=== PATIENT | male | born 1965 | race Caucasian/White ===

== ENCOUNTER 2017-01-14 23:22 | Emergency (ER) | payer MEDICAID ==
[~2017-01-14] VITALS: Ht 170.2 cm; Wt 75.0 kg
[~2017-01-14 23:22] MED LIST: ALBU2.5V11; ALBU6.7H INH; BUTA1CAP60 PO; CYCL-259 PO; DIAZ5TAB4 PO; GABA300C PO; METH500T97; METH750T2 PO; MORP60CA17 PO; NAPR550T3 PO; OMEP-110 PO; OXYC-229 PO; OXYC1TAB9 PO
[2017-01-15] MEDS ORDERED: ALBUTEROL/IPRATROPIUM 2.5MG/0.5MG, 3 ML ONE (00:48)
[2017-01-15] MEDS ORDERED: ALBUTEROL/IPRATROPIUM 2.5MG/0.5MG, 3 ML NPPB ONE (01:00)
[2017-01-15] MEDS ORDERED: ONDANSETRON ODT 4 MG PO ONE (01:00)
[2017-01-15] MEDS ORDERED: ONDANSETRON ODT 4 MG ONE (01:55)
[2017-01-15 02:06] VITALS: BP 133/68
== END 2017-01-15 02:08 ==
LOC: ED 01-15 02:02
DX: J20.8 Acute bronchitis due to other specified organisms (principal); J44.9 Chronic obstructive pulmonary disease, unspecified; E11.9 Type 2 diabetes mellitus without complications; I10 Essential (primary) hypertension
CPT/HCPCS: 71010; 93005; 94640; 99284; Q0162; J7620

== ENCOUNTER 2017-02-10 09:23 | Emergency (ER) | payer MEDICAID ==
[~2017-02-10] VITALS: Ht 170.2 cm; Wt 63.0 kg
[2017-02-10] MEDS ORDERED: SODIUM CHLORIDE FLUSH 10ML SYR IVF ONE (10:00)
[2017-02-10 10:27] LABS: HEMOGLOBIN 16.1 g/dL (13.7-18.0)
[2017-02-10 10:38] LABS: BLOOD UREA NITROGEN 23 mg/dL (7-18)
[2017-02-10 12:17] VITALS: BP 112/60
== END 2017-02-10 12:19 | disposition home or self-care (01) ==
LOC: ED 11:20
DX: G40.309 Generalized idiopathic epilepsy and epileptic syndromes, not intractable, without status epilepticus (principal); J44.9 Chronic obstructive pulmonary disease, unspecified; E11.9 Type 2 diabetes mellitus without complications; I10 Essential (primary) hypertension; Z88.5 Allergy status to narcotic agent
CPT/HCPCS: 36415; 80048; 80164; 82040; 85025; 99284

== ENCOUNTER 2017-03-14 12:28 | Emergency (ER) | payer MEDICAID ==
[~2017-03-14] VITALS: Ht 167.6 cm; Wt 69.0 kg
[2017-03-14 12:31] VITALS: BP 153/84
[2017-03-14] MEDS ORDERED: FLUORESCEIN OPHTHALMIC 1 MG STRIP EACHEYE ONE (13:00)
[2017-03-14] MEDS ORDERED: PROPARACAINE OPHTH 0.5%, 15ML EACHEYE ONE (13:00)
[2017-03-14] MEDS ORDERED: FLUORESCEIN OPHTHALMIC 1 MG STRIP ONE (13:00)
[2017-03-14] MEDS ORDERED: PROPARACAINE OPHTH 0.5%, 15ML ONE (13:00)
== END 2017-03-14 13:41 | disposition home or self-care (01) ==
LOC: ED 13:00
DX: H10.33 Unspecified acute conjunctivitis, bilateral (principal); E11.9 Type 2 diabetes mellitus without complications; I10 Essential (primary) hypertension; Z88.8 Allergy status to other drugs, medicaments and biological substances
CPT/HCPCS: 99283

== ENCOUNTER 2017-04-14 17:21 | Emergency (ER) | payer MEDICAID ==
[~2017-04-14] VITALS: Ht 170.2 cm; Wt 70.5 kg
[2017-04-14 17:23] VITALS: BP 152/80
[2017-04-14] MEDS ORDERED: LORazepam 1MG TABLET PO ONE (18:00)
[2017-04-14 18:09] LABS: BLOOD UREA NITROGEN 10 mg/dL (7-18)
[2017-04-14 18:13] LABS: ASPARTATE AMINO TRANSFERASE 22 U/L (15-37)
[2017-04-14 18:19] LABS: ACETAMINOPHEN < 2 mcg/mL (10-30)
[2017-04-14 19:41] LABS: DAU SCREEN DISCLAIMER
== END 2017-04-14 20:37 | disposition home or self-care (01) ==
LOC: ED 18:11
DX: S00.93XA Contusion of unspecified part of head, initial encounter (principal); E11.9 Type 2 diabetes mellitus without complications; I10 Essential (primary) hypertension; J44.9 Chronic obstructive pulmonary disease, unspecified; F41.9 Anxiety disorder, unspecified; W19.XXXA Unspecified fall, initial encounter; Y93.89 Activity, other specified; Y99.8 Other external cause status; Y92.89 Other specified places as the place of occurrence of the external cause
CPT/HCPCS: 36415; 70450; 80053; 80307; 80329; 81003; 85025; G0480

== ENCOUNTER 2017-04-29 14:34 | Emergency (ER) | payer MEDICAID ==
[~2017-04-29] VITALS: Ht 170.2 cm; Wt 69.6 kg
[~2017-04-29 14:34] MED LIST changes: -NAPR550T3 PO; +NAPR550T30 PO
[2017-04-29] MEDS ORDERED: DIVA500T2 PO (15:05)
[2017-04-29] MEDS ORDERED: ARIP5TAB6 PO (15:05)
[2017-04-29] MEDS ORDERED: GABA600T2 PO (15:05)
[2017-04-29] MEDS ORDERED: SODIUM CHLORIDE 0.9% 1,000 ML IV ONE (15:26)
[2017-04-29] MEDS ORDERED: SODIUM CHLORIDE 0.9% 1,000ML IVBOLUS ONE (15:30)
[2017-04-29] MEDS ORDERED: METHOCARBAMOL 1,000 MG in DEXTROSE 5% 100 ML IV ONE (15:30)
[2017-04-29] MEDS ORDERED: SODIUM CHLORIDE FLUSH 10ML SYR IVF ONE (15:30)
[2017-04-29] MEDS ORDERED: ASPIRIN 81 MG TABLET CHEW PO ONE (15:30)
[2017-04-29] MEDS ORDERED: ASPIRIN 81 MG TABLET CHEW ONE (15:48)
[2017-04-29 15:55] LABS: ASPARTATE AMINO TRANSFERASE 22 U/L (15-37); BLOOD UREA NITROGEN 11 mg/dL (7-18)
[2017-04-29 16:00] LABS: IS PT STATUS REG ER OR PRE ER? YES
[2017-04-29 20:17] VITALS: BP 129/82
[2017-04-29] MEDS ORDERED: OMNIPAQUE 350 MG/ML, 100ML BOTTLE ONE (20:21)
== END 2017-04-29 20:20 | disposition home or self-care (01) ==
LOC: ED 17:32
DX: R07.89 Other chest pain (principal); R44.3 Hallucinations, unspecified; F23 Brief psychotic disorder; M62.838 Other muscle spasm; M79.1 Myalgia; D72.829 Elevated white blood cell count, unspecified; J44.9 Chronic obstructive pulmonary disease, unspecified; E11.9 Type 2 diabetes mellitus without complications; I51.7 Cardiomegaly
CPT/HCPCS: 36415; 71010; 71275; 80053; 84484; 85025; 93005; 96365; 99285; J2800; J7030; Q9967

== ENCOUNTER 2017-05-29 11:24 | Emergency (ER) | payer MEDICAID ==
[~2017-05-29] VITALS: Ht 170.2 cm; Wt 69.1 kg
[~2017-05-29 11:24] MED LIST changes: +ARIP5TAB6 PO; +DIVA500T2 PO; +GABA600T2 PO
[2017-05-29 11:30] VITALS: BP 145/87
== END 2017-05-29 12:06 | disposition home or self-care (01) ==
LOC: ED 11:44
DX: H60.11 Cellulitis of right external ear (principal); L03.211 Cellulitis of face; L03.221 Cellulitis of neck; J44.9 Chronic obstructive pulmonary disease, unspecified; G43.909 Migraine, unspecified, not intractable, without status migrainosus; F12.10 Cannabis abuse, uncomplicated; Z88.6 Allergy status to analgesic agent
CPT/HCPCS: 99283

== ENCOUNTER 2017-08-02 18:29 | Emergency (ER) | payer MEDICAID ==
[~2017-08-02] VITALS: Ht 170.2 cm; Wt 72.7 kg
[~2017-08-02 18:29] MED LIST changes: +ARIP5TAB13 PO; -ARIP5TAB6 PO; +NAPR-850 PO; -NAPR550T30 PO; -OXYC-229 PO; +OXYC-307 PO
[2017-08-02 18:31] VITALS: BP 176/97
== END 2017-08-02 19:06 | disposition home or self-care (01) ==
LOC: ED 18:40
DX: H93.11 Tinnitus, right ear (principal); H93.12 Tinnitus, left ear; E11.9 Type 2 diabetes mellitus without complications; J44.9 Chronic obstructive pulmonary disease, unspecified; I10 Essential (primary) hypertension
CPT/HCPCS: 99281

== ENCOUNTER 2017-08-10 05:15 | Observation (INO) | payer MEDICAID ==
[~2017-08-10] VITALS: Ht 170.2 cm; Wt 69.3 kg
[2017-08-10] MEDS ORDERED: HALOPERIDOL 5 MG/ML ONE (05:55)
[2017-08-10] MEDS ORDERED: DIPHENHYDRAMINE 50 MG/ML, 1ML ONE (05:55)
[2017-08-10] MEDS ORDERED: LORazepam 2 MG/ML, 1ML ONE (05:56)
[2017-08-10] MEDS ORDERED: LORazepam 2 MG/ML, 1ML IM ONE (06:00)
[2017-08-10] MEDS ORDERED: DIPHENHYDRAMINE 50 MG/ML, 1ML IM ONE (06:00)
[2017-08-10] MEDS ORDERED: HALOPERIDOL 5 MG/ML IM ONE (06:00)
[2017-08-10 06:43] LABS: HEMATOCRIT 46.3 % (39.2-51.8); HEMOGLOBIN 15.6 g/dL (13.7-18.0); WHITE BLOOD COUNT 13.2 x10^3/uL (3.4-10)
[2017-08-10 06:54] LABS: BLOOD UREA NITROGEN 13 mg/dL (7-18)
[2017-08-10 06:55] LABS: ACETAMINOPHEN < 2 mcg/mL (10-30)
[2017-08-10] MEDS ORDERED: DIPH,PERTUSS(ACELL),TET VAC/PF 0.5 ML IM-VACC ONE (07:00)
[2017-08-10 07:24] LABS: IS PT STATUS REG ER OR PRE ER? YES
[2017-08-10 22:37] LABS: DAU SCREEN DISCLAIMER
[2017-08-11] MEDS ORDERED: ZIPRASIDONE 20 MG INJ IM PRN (00:30)
[2017-08-11] MEDS ORDERED: DIPHENHYDRAMINE 50 MG CAPSULE PO PRN (00:30)
[2017-08-11] MEDS ORDERED: ZIPRASIDONE 20MG CAPSULE PO PRN (00:30)
[2017-08-11] MEDS ORDERED: DOCUSATE 100 MG CAPSULE PO PRN (00:30)
[2017-08-11] MEDS ORDERED: DIPH,PERTUSS(ACELL),TET VAC/PF 0.5 ML IM-VACC ONE (00:48)
[2017-08-11 01:00] VITALS: BP 117/82
[2017-08-11] MEDS: ARIPIPRAZOLE 5 MG TABLET PO SCH ×2 (02:46→21:47)
[2017-08-11 03:13] VITALS: BP 107/70
[2017-08-11 08:00] VITALS: BP 105/70
[2017-08-11] MEDS: GABAPENTIN 300 MG CAPSULE PO SCH ×2 (08:53→21:47)
[2017-08-11] MEDS: DIVALPROEX 500 MG TABLET.DR PO SCH ×2 (08:53→21:47)
[2017-08-11 19:37] VITALS: BP 116/73
[2017-08-12 06:42] LABS: HEMATOCRIT 45.2 % (39.2-51.8); WHITE BLOOD COUNT 13.1 x10^3/uL (3.4-10)
[2017-08-12 06:51] LABS: ASPARTATE AMINO TRANSFERASE 24 U/L (15-37); BLOOD UREA NITROGEN 21 mg/dL (7-18)
[2017-08-12] MEDS: DIVALPROEX 500 MG TABLET.DR PO SCH ×2 (08:48→21:04)
[2017-08-12] MEDS: GABAPENTIN 300 MG CAPSULE PO SCH ×2 (08:48→21:04)
[2017-08-12 08:54] VITALS: BP 114/68
[2017-08-12 19:12] VITALS: BP 123/80
[2017-08-12] MEDS ORDERED: NICOTINE 21 MG/24 HR PATCH.TD24 TD ONE (20:30)
[2017-08-12] MEDS ORDERED: ARIPIPRAZOLE 10 MG TABLET PO SCH (21:00)
[2017-08-12] MEDS: ARIPIPRAZOLE 5 MG TABLET PO SCH (21:00)
[2017-08-12] MEDS: PLEASE ENTER ALLERGIES MC SCH ×2 (21:00)
[2017-08-13] MEDS: PLEASE ENTER ALLERGIES MC SCH ×2 (05:00)
[2017-08-13 07:04] LABS: HEMOGLOBIN 14.7 g/dL (13.7-18.0); WHITE BLOOD COUNT 11.2 x10^3/uL (3.4-10)
[2017-08-13 07:15] LABS: BLOOD UREA NITROGEN 13 mg/dL (7-18)
[2017-08-13 08:00] VITALS: BP 99/67
[2017-08-13] MEDS: DIVALPROEX 500 MG TABLET.DR PO SCH ×2 (08:42→20:28)
[2017-08-13] MEDS: GABAPENTIN 300 MG CAPSULE PO SCH ×2 (08:42→20:28)
[2017-08-13 19:20] VITALS: BP 118/72
[2017-08-13] MEDS: ARIPIPRAZOLE 10 MG TABLET PO SCH (21:10)
[2017-08-14 07:35] VITALS: BP 113/73
[2017-08-14] MEDS: GABAPENTIN 300 MG CAPSULE PO SCH ×2 (08:51→20:40)
[2017-08-14] MEDS: DIVALPROEX 500 MG TABLET.DR PO SCH ×2 (08:51→20:40)
[2017-08-14] MEDS ORDERED: NICOTINE 21 MG/24 HR PATCH.TD24 TD SCH (19:00)
[2017-08-14 19:25] VITALS: BP 118/73
[2017-08-14] MEDS: ARIPIPRAZOLE 10 MG TABLET PO SCH (20:40)
[2017-08-14] MEDS: NICOTINE 21 MG/24 HR PATCH.TD24 TD SCH (20:41)
[2017-08-14] MEDS: ACETAMINOPHEN 325 MG TABLET PO PRN (20:45)
[2017-08-15 06:00] LABS: HEMATOCRIT 46.1 % (39.2-51.8); HEMOGLOBIN 15.5 g/dL (13.7-18.0); WHITE BLOOD COUNT 11.7 x10^3/uL (3.4-10)
[2017-08-15 06:22] LABS: ASPARTATE AMINO TRANSFERASE 18 U/L (15-37); BLOOD UREA NITROGEN 16 mg/dL (7-18)
[2017-08-15 07:39] VITALS: BP 119/78
[2017-08-15] MEDS: NICOTINE 21 MG/24 HR PATCH.TD24 TD SCH (08:43)
[2017-08-15] MEDS: GABAPENTIN 300 MG CAPSULE PO SCH ×2 (08:43→20:37)
[2017-08-15] MEDS: DIVALPROEX 500 MG TABLET.DR PO SCH ×2 (08:43→20:37)
[2017-08-15] MEDS: ACETAMINOPHEN 325 MG TABLET PO PRN (08:43)
[2017-08-15 19:17] VITALS: BP 121/73
[2017-08-15] MEDS ORDERED: ZIPRASIDONE 20MG CAPSULE PO PRN (20:30)
[2017-08-15] MEDS ORDERED: DIPHENHYDRAMINE 50 MG CAPSULE PO PRN (20:30)
[2017-08-15] MEDS ORDERED: DOCUSATE 100 MG CAPSULE PO PRN (20:30)
[2017-08-15] MEDS ORDERED: ZIPRASIDONE 20 MG INJ IM PRN (20:30)
[2017-08-15] MEDS: ARIPIPRAZOLE 10 MG TABLET PO SCH (20:36)
[2017-08-16] MEDS: GABAPENTIN 300 MG CAPSULE PO SCH ×2 (08:27→20:22)
[2017-08-16] MEDS: ACETAMINOPHEN 325 MG TABLET PO PRN ×2 (08:27→15:10)
[2017-08-16] MEDS: NICOTINE 21 MG/24 HR PATCH.TD24 TD SCH (08:27)
[2017-08-16] MEDS: DIVALPROEX 500 MG TABLET.DR PO SCH ×2 (08:27→20:21)
[2017-08-16 08:54] VITALS: BP 102/66
[2017-08-16 19:28] VITALS: BP 115/68
[2017-08-16] MEDS: ARIPIPRAZOLE 10 MG TABLET PO SCH (20:21)
[2017-08-17 06:14] LABS: HEMATOCRIT 48.4 % (39.2-51.8); HEMOGLOBIN 16.3 g/dL (13.7-18.0); WHITE BLOOD COUNT 11.7 x10^3/uL (3.4-10)
[2017-08-17 06:24] LABS: BLOOD UREA NITROGEN 16 mg/dL (7-18)
[2017-08-17] MEDS: GABAPENTIN 300 MG CAPSULE PO SCH (08:41)
[2017-08-17] MEDS: DIVALPROEX 500 MG TABLET.DR PO SCH (08:41)
[2017-08-17 08:45] VITALS: BP 117/74
[2017-08-17] MEDS: ACETAMINOPHEN 325 MG TABLET PO PRN (08:46)
[2017-08-17] MEDS: NICOTINE 21 MG/24 HR PATCH.TD24 TD SCH (08:47)
[2017-08-17] MEDS ORDERED: ARIP10TA33 PO (15:10)
== END 2017-08-17 17:00 | disposition home or self-care (01) ==
LOC: ED 05:59 → SUATTDRO 08-11 00:09 → EDIP 08-11 00:10 → 3NW 08-11 00:55 → 3E 08-11 02:28
PROVIDERS: ADMIT Family Medicine; ATTEND Family Medicine
DX: R45.851 Suicidal ideations (principal); F43.10 Post-traumatic stress disorder, unspecified; F15.20 Other stimulant dependence, uncomplicated; F22 Delusional disorders; E11.9 Type 2 diabetes mellitus without complications; E44.1 Mild protein-calorie malnutrition; F17.210 Nicotine dependence, cigarettes, uncomplicated; F20.9 Schizophrenia, unspecified; F31.9 Bipolar disorder, unspecified; G40.909 Epilepsy, unspecified, not intractable, without status epilepticus; I10 Essential (primary) hypertension; J44.9 Chronic obstructive pulmonary disease, unspecified; M79.7 Fibromyalgia; R63.1 Polydipsia; Z85.72 Personal history of non-Hodgkin lymphomas; Z91.5 Personal history of self-harm; Z92.21 Personal history of antineoplastic chemotherapy; Z23 Encounter for immunization
CPT/HCPCS: 36415; 80048; 80053; 80307; 80329; 81001; 82040; 84484; 85025; 90471; 90715; 93005; 96372; 99285; G0008; G0378; J1200; J1630; J2060; J3486; G0479; G0480

== ENCOUNTER 2017-08-21 18:28 | Emergency (ER) | payer MEDICAID ==
[~2017-08-21] VITALS: Ht 170.2 cm; Wt 68.6 kg
[~2017-08-21 18:28] MED LIST changes: +ARIP10TA33 PO
[2017-08-21 18:31] VITALS: BP 150/91
[2017-08-21] MEDS ORDERED: PHEN30CA PO (18:39)
[2017-08-21] MEDS ORDERED: PHENYTOIN 100 MG CAPSULE PO STA (19:24)
[2017-08-21] MEDS ORDERED: LORazepam 1MG TABLET PO ONE (19:30)
[2017-08-21] MEDS ORDERED: PHENYTOIN 100 MG CAPSULE ONE (19:41)
[2017-08-21] MEDS ORDERED: LORazepam 1MG TABLET ONE (19:42)
== END 2017-08-21 20:08 | disposition home or self-care (01) ==
LOC: ED 19:14
DX: R56.9 Unspecified convulsions (principal); I10 Essential (primary) hypertension; G43.909 Migraine, unspecified, not intractable, without status migrainosus; J44.9 Chronic obstructive pulmonary disease, unspecified; E11.9 Type 2 diabetes mellitus without complications; F17.210 Nicotine dependence, cigarettes, uncomplicated
CPT/HCPCS: 93005; 99283

== ENCOUNTER 2017-08-23 20:10 | Observation (INO) | payer MEDICAID ==
[~2017-08-23] VITALS: Ht 170.2 cm; Wt 70.8 kg
[~2017-08-23 20:10] MED LIST changes: +PHEN30CA PO
[2017-08-23 20:46] LABS: HEMATOCRIT 48.2 % (39.2-51.8); HEMOGLOBIN 16.3 g/dL (13.7-18.0); WHITE BLOOD COUNT 21.1 x10^3/uL (3.4-10)
[2017-08-23 20:53] LABS: ASPARTATE AMINO TRANSFERASE 25 U/L (15-37); BLOOD UREA NITROGEN 9 mg/dL (7-18)
[2017-08-23 20:56] LABS: ACETAMINOPHEN < 2 mcg/mL (10-30)
[2017-08-23] MEDS ORDERED: ZIPRASIDONE 20 MG INJ IM ONE ×2 (20:58→21:00)
[2017-08-23] MEDS ORDERED: LORazepam 1MG TABLET ONE (20:58)
[2017-08-23] MEDS ORDERED: LORazepam 1MG TABLET PO ONE (21:00)
[2017-08-23] MEDS: PLEASE ENTER ALLERGIES MC SCH ×2 (21:06)
[2017-08-23 21:09] LABS: DIFF TOTAL CELLS COUNTED 100 CELL DIFF
[2017-08-23 21:13] LABS: VERIFY COUNTS? YES
[2017-08-23 22:23] LABS: DAU SCREEN DISCLAIMER
[2017-08-24] MEDS: PLEASE ENTER ALLERGIES MC SCH ×4 (05:00→10:45)
[2017-08-24 07:50] VITALS: BP 111/72
[2017-08-24] MEDS: DIVALPROEX 500 MG TABLET.DR PO SCH ×2 (08:50→20:03)
[2017-08-24] MEDS ORDERED: PHENYTOIN SODIUM PO SCH (09:00)
[2017-08-24 09:03] LABS: HEMATOCRIT 46.1 % (39.2-51.8); HEMOGLOBIN 15.8 g/dL (13.7-18.0); WHITE BLOOD COUNT 11.1 x10^3/uL (3.4-10)
[2017-08-24 09:26] LABS: BLOOD UREA NITROGEN 11 mg/dL (7-18)
[2017-08-24] MEDS: PHENYTOIN 100 MG CAPSULE PO SCH ×2 (15:15→20:02)
[2017-08-24 15:31] VITALS: BP 101/67
[2017-08-24] MEDS ORDERED: ASPIRIN 325 MG TABLET PO STA (15:51)
[2017-08-24] MEDS ORDERED: PHENYTOIN 100 MG CAPSULE PO SCH (16:00)
[2017-08-24 16:37] LABS: IS PT STATUS REG ER OR PRE ER? NO
[2017-08-24] MEDS: ACETAMINOPHEN 325 MG TABLET PO PRN (19:17)
[2017-08-24 19:21] VITALS: BP 110/72
[2017-08-24] MEDS: NICOTINE 21 MG/24 HR PATCH.TD24 TD SCH (20:02)
[2017-08-24] MEDS: ARIPIPRAZOLE 10 MG TABLET PO SCH (20:03)
[2017-08-25 05:51] LABS: HEMATOCRIT 44.9 % (39.2-51.8); HEMOGLOBIN 15.1 g/dL (13.7-18.0); WHITE BLOOD COUNT 12.6 x10^3/uL (3.4-10)
[2017-08-25 06:09] LABS: BLOOD UREA NITROGEN 14 mg/dL (7-18)
[2017-08-25 08:00] VITALS: BP 108/76
[2017-08-25 08:36] LABS: IS PT STATUS REG ER OR PRE ER? NO
[2017-08-25] MEDS: DIVALPROEX 500 MG TABLET.DR PO SCH ×2 (09:33→20:10)
[2017-08-25] MEDS: PHENYTOIN 100 MG CAPSULE PO SCH ×3 (09:33→20:09)
[2017-08-25] MEDS: ARIPIPRAZOLE 10 MG TABLET PO SCH (20:10)
[2017-08-25] MEDS: NICOTINE 21 MG/24 HR PATCH.TD24 TD SCH (20:10)
[2017-08-25 20:11] VITALS: BP 111/70
[2017-08-26] MEDS: PHENYTOIN 100 MG CAPSULE PO SCH ×3 (08:23→20:21)
[2017-08-26] MEDS: DIVALPROEX 500 MG TABLET.DR PO SCH ×2 (08:23→20:21)
[2017-08-26 08:50] VITALS: BP 111/57
[2017-08-26 13:59] LABS: HEMATOCRIT 46.4 % (39.2-51.8); HEMOGLOBIN 15.4 g/dL (13.7-18.0); WHITE BLOOD COUNT 11.8 x10^3/uL (3.4-10)
[2017-08-26 14:06] LABS: BLOOD UREA NITROGEN 8 mg/dL (7-18)
[2017-08-26 19:26] VITALS: BP 96/63
[2017-08-26] MEDS: ARIPIPRAZOLE 10 MG TABLET PO SCH (20:21)
[2017-08-26] MEDS: NICOTINE 21 MG/24 HR PATCH.TD24 TD SCH (20:23)
[2017-08-27 05:59] LABS: HEMATOCRIT 46.2 % (39.2-51.8); HEMOGLOBIN 15.5 g/dL (13.7-18.0); WHITE BLOOD COUNT 12.7 x10^3/uL (3.4-10)
[2017-08-27 06:18] LABS: BLOOD UREA NITROGEN 11 mg/dL (7-18)
[2017-08-27 08:00] VITALS: BP 94/64
[2017-08-27] MEDS: PHENYTOIN 100 MG CAPSULE PO SCH ×3 (08:36→20:57)
[2017-08-27] MEDS: DIVALPROEX 500 MG TABLET.DR PO SCH ×2 (08:36→20:57)
[2017-08-27] MEDS: ACETAMINOPHEN 325 MG TABLET PO PRN (08:37)
[2017-08-27 20:00] VITALS: BP 126/79
[2017-08-27] MEDS: ARIPIPRAZOLE 10 MG TABLET PO SCH (20:57)
[2017-08-27] MEDS: NICOTINE 21 MG/24 HR PATCH.TD24 TD SCH (21:00)
[2017-08-28] MEDS: DIVALPROEX 500 MG TABLET.DR PO SCH ×2 (08:38→19:56)
[2017-08-28] MEDS: PHENYTOIN 100 MG CAPSULE PO SCH ×3 (08:38→19:56)
[2017-08-28 08:46] VITALS: BP_SYST 105; BP_SYST 106; BP_DIAS 64; BP_DIAS 67
[2017-08-28] MEDS: ACETAMINOPHEN 325 MG TABLET PO PRN (17:50)
[2017-08-28 19:31] VITALS: BP 105/65
[2017-08-28] MEDS: ARIPIPRAZOLE 10 MG TABLET PO SCH (19:56)
[2017-08-28] MEDS: NICOTINE 21 MG/24 HR PATCH.TD24 TD SCH (19:57)
== END 2017-08-29 02:20 ==
LOC: ED 21:38 → EDIP 08-24 02:05 → OBSVTOIN 08-24 02:16 → INTOOBSV 08-24 02:16 → 3E 08-24 02:54
PROVIDERS: ADMIT Hospitalist; ATTEND Hospitalist
DX: R45.851 Suicidal ideations (principal); F19.951 Other psychoactive substance use, unspecified with psychoactive substance-induced psychotic disorder with hallucinations; F19.21 Other psychoactive substance dependence, in remission; F60.1 Schizoid personality disorder; F10.21 Alcohol dependence, in remission; J44.9 Chronic obstructive pulmonary disease, unspecified; F43.10 Post-traumatic stress disorder, unspecified; F20.0 Paranoid schizophrenia
CPT/HCPCS: 36415; 76700; 80048; 80053; 80185; 80307; 80329; 84484; 85025; 93005; 93306; 96372; 99285; G0378; J3486; G0479; G0480

== ENCOUNTER 2017-09-25 14:36 | Observation (INO) | payer MEDICAID ==
[~2017-09-25] VITALS: Ht 170.2 cm; Wt 72.3 kg
[2017-09-25] MEDS ORDERED: DIVA250T4 PO (15:02)
[2017-09-25] MEDS ORDERED: ARIP10TA33 PO (15:02)
[2017-09-25] MEDS ORDERED: PHEN100C PO (15:02)
[2017-09-25 15:45] LABS: DAU SCREEN DISCLAIMER
[2017-09-25 15:56] LABS: HEMATOCRIT 43.3 % (39.2-51.8); HEMOGLOBIN 14.7 g/dL (13.7-18.0); WHITE BLOOD COUNT 12.2 x10^3/uL (3.4-10)
[2017-09-25 16:11] LABS: ASPARTATE AMINO TRANSFERASE 26 U/L (15-37); BLOOD UREA NITROGEN 8 mg/dL (7-18); VALPROIC ACID 78.9 mcg/mL (50.0-100.0)
[2017-09-25 16:17] LABS: ACETAMINOPHEN < 2 mcg/mL (10-30)
[2017-09-25] MEDS ORDERED: PHENYTOIN 100 MG CAPSULE ONE (18:42)
[2017-09-25] MEDS: PHENYTOIN 100 MG CAPSULE PO SCH ×2 (18:46→21:00)
[2017-09-25] MEDS ORDERED: BENZTROPINE 1 MG TABLET PO PRN ×2 (21:00)
[2017-09-25] MEDS ORDERED: ONDANSETRON ODT 4 MG PO PRN (21:00)
[2017-09-25] MEDS ORDERED: HALOPERIDOL 5 MG/ML IM PRN (21:00)
[2017-09-25] MEDS ORDERED: TEMAZEPAM 15 MG CAPSULE PO PRN (21:00)
[2017-09-25] MEDS ORDERED: ZIPRASIDONE 20 MG INJ IM PRN (21:00)
[2017-09-25 21:04] LABS: VALPROIC ACID 52.5 mcg/mL (50.0-100.0)
[2017-09-25 21:09] VITALS: BP 113/72
[2017-09-25] MEDS ORDERED: PHENYTOIN 100 MG CAPSULE PO SCH (22:00)
[2017-09-25] MEDS: DIVALPROEX 250 MG TABLET.DR PO SCH (22:31)
[2017-09-26 07:57] VITALS: BP 122/81
[2017-09-26] MEDS: ARIPIPRAZOLE 10 MG TABLET PO SCH (08:49)
[2017-09-26] MEDS: DIVALPROEX 250 MG TABLET.DR PO SCH ×2 (08:49→20:26)
[2017-09-26] MEDS: PHENYTOIN 100 MG CAPSULE PO SCH (08:50)
[2017-09-26 19:28] VITALS: BP 94/52
[2017-09-27 08:11] VITALS: BP 122/73
[2017-09-27] MEDS: ARIPIPRAZOLE 10 MG TABLET PO SCH (08:35)
[2017-09-27] MEDS: DIVALPROEX 250 MG TABLET.DR PO SCH ×2 (08:35→21:06)
[2017-09-27] MEDS: PHENYTOIN 100 MG CAPSULE PO SCH ×2 (16:12→21:07)
[2017-09-27 19:44] VITALS: BP 108/70
[2017-09-28] MEDS: ACETAMINOPHEN 325 MG TABLET PO PRN ×2 (05:20→20:29)
[2017-09-28 07:23] VITALS: BP 103/72
[2017-09-28] MEDS: ARIPIPRAZOLE 10 MG TABLET PO SCH (08:08)
[2017-09-28] MEDS: DIVALPROEX 250 MG TABLET.DR PO SCH ×2 (08:08→20:25)
[2017-09-28] MEDS: PHENYTOIN 100 MG CAPSULE PO SCH ×3 (08:08→23:54)
[2017-09-28 19:47] VITALS: BP 123/85
[2017-09-29] MEDS: ACETAMINOPHEN 325 MG TABLET PO PRN ×2 (03:46→19:59)
[2017-09-29] MEDS: ARIPIPRAZOLE 10 MG TABLET PO SCH (07:35)
[2017-09-29] MEDS: PHENYTOIN 100 MG CAPSULE PO SCH ×3 (07:35→22:51)
[2017-09-29] MEDS: DIVALPROEX 250 MG TABLET.DR PO SCH ×2 (07:36→19:59)
[2017-09-29 08:00] VITALS: BP 119/80
[2017-09-29 19:44] VITALS: BP 103/64
[2017-09-30] MEDS: ACETAMINOPHEN 325 MG TABLET PO PRN ×4 (03:51→20:15)
[2017-09-30 07:12] VITALS: BP 117/68
[2017-09-30] MEDS: ARIPIPRAZOLE 10 MG TABLET PO SCH (09:08)
[2017-09-30] MEDS: DIVALPROEX 250 MG TABLET.DR PO SCH ×2 (09:09→20:15)
[2017-09-30] MEDS: PHENYTOIN 100 MG CAPSULE PO SCH ×3 (09:09→20:13)
[2017-09-30 19:49] VITALS: BP 114/73
[2017-10-01 07:45] VITALS: BP 107/67
[2017-10-01] MEDS: ARIPIPRAZOLE 10 MG TABLET PO SCH (08:47)
[2017-10-01] MEDS: ACETAMINOPHEN 325 MG TABLET PO PRN (08:48)
[2017-10-01] MEDS: DIVALPROEX 250 MG TABLET.DR PO SCH (08:48)
[2017-10-01] MEDS: PHENYTOIN 100 MG CAPSULE PO SCH ×2 (08:48→16:08)
== END 2017-10-01 16:41 | disposition home or self-care (01) ==
LOC: ED 15:21 → EDIP 19:21 → 3E 20:56
PROVIDERS: ADMIT Internal Medicine; ATTEND Internal Medicine
DX: R45.851 Suicidal ideations (principal); R45.850 Homicidal ideations; F23 Brief psychotic disorder; F31.9 Bipolar disorder, unspecified; F17.210 Nicotine dependence, cigarettes, uncomplicated; F12.90 Cannabis use, unspecified, uncomplicated; E11.9 Type 2 diabetes mellitus without complications; J44.9 Chronic obstructive pulmonary disease, unspecified; I10 Essential (primary) hypertension
CPT/HCPCS: 36415; 80053; 80164; 80185; 80307; 80329; 85025; 99285; G0378; G0479; G0480

== ENCOUNTER 2017-10-16 10:54 | Emergency (ER) | payer MEDICAID ==
[~2017-10-16] VITALS: Ht 170.2 cm; Wt 75.3 kg
[~2017-10-16 10:54] MED LIST changes: +DIVA250T4 PO; +PHEN100C PO
[2017-10-16 11:55] VITALS: BP 131/85
== END 2017-10-16 11:59 | disposition home or self-care (01) ==
LOC: ED 11:53
DX: Z76.0 Encounter for issue of repeat prescription (principal)
CPT/HCPCS: 99283

== ENCOUNTER 2017-10-24 20:40 | Emergency (ER) | payer MEDICAID ==
[~2017-10-24] VITALS: Ht 170.2 cm; Wt 74.7 kg
[2017-10-24 21:04] LABS: DAU SCREEN DISCLAIMER
[2017-10-24] MEDS ORDERED: KETOROLAC 60 MG/2 ML IM ONE (22:00)
[2017-10-24] MEDS ORDERED: PLEASE ENTER ALLERGIES MC SCH ×2 (22:00)
[2017-10-24] MEDS ORDERED: KETOROLAC 30 MG/1 ML ONE (22:09)
[2017-10-25 00:31] VITALS: BP 103/82
== END 2017-10-25 00:34 | disposition home or self-care (01) ==
LOC: ED 21:37
DX: S92.335A Nondisplaced fracture of third metatarsal bone, left foot, initial encounter for closed fracture (principal); J44.9 Chronic obstructive pulmonary disease, unspecified; I10 Essential (primary) hypertension; E11.9 Type 2 diabetes mellitus without complications; G43.909 Migraine, unspecified, not intractable, without status migrainosus; F20.9 Schizophrenia, unspecified; F17.200 Nicotine dependence, unspecified, uncomplicated; X58.XXXA Exposure to other specified factors, initial encounter; Y93.89 Activity, other specified; Y99.8 Other external cause status; Y92.820 Desert as the place of occurrence of the external cause
CPT/HCPCS: 73630; 80307; 96372; 99285; J1885; G0479

== ENCOUNTER 2018-03-15 06:17 | Inpatient (IN) | payer MEDICAID ==
[~2018-03-15] VITALS: Ht 170.2 cm; Wt 75.3 kg
[2018-03-15] MEDS ORDERED: ZIPRASIDONE 20 MG INJ IM ONE (06:39)
[2018-03-15] MEDS ORDERED: ZIPRASIDONE 20 MG INJ IM PRN ×2 (07:00)
[2018-03-15 07:04] LABS: AMPHETAMINE SCREEN, URINE Positive (Negative); BARBITURATE SCREEN, URINE Negative (Negative); BENZODIAZEPINE SCREEN, URINE Negative (Negative); CANNABINOID SCREEN, URINE Negative (Negative); COCAINE SCREEN, URINE Negative (Negative); METHADONE SCREEN, URINE Negative (Negative); OPIATE SCREEN, URINE Negative (Negative)
[2018-03-15 07:17] LABS: ALBUMIN 3.5 g/dL (3.4-5.0); ANION GAP 11 mmol/L (5-15); CALCIUM 8.7 mg/dL (8.5-10.1); CHLORIDE 102 mmol/L (98-107); SALICYLATE LEVEL 2.4 mg/dL (2.8-20.0)
[2018-03-15 07:20] LABS: ACETAMINOPHEN < 2 mcg/mL (10-30); ALANINE AMINOTRANSFERASE 61 U/L (12-78); ALKALINE PHOSPHATASE 37 U/L (45-117); BASOPHILS # (AUTO) 0.05 x10^3/uL (0-0.1); BASOPHILS % (AUTO) 1 % (0-1); BILIRUBIN,TOTAL 1.1 mg/dL (0.2-1.0); CREATININE 0.99 mg/dL (0.7-1.3); EOSINOPHILS # (AUTO) 0.14 x10^3/uL (0-0.4); EOSINOPHILS % (AUTO) 1 % (1-7); LYMPHOCYTES # (AUTO) 2.08 x10^3/uL (1-3.4); LYMPHOCYTES % (AUTO) 22 % (22-44); MEAN CORPUSCULAR HEMOGLOBIN 30.8 pg (27.5-34.5); MEAN CORPUSCULAR HGB CONC 34.2 g/dL (33.2-36.2); MEAN CORPUSCULAR VOLUME 90.1 fL (81-97); MEAN PLATELET VOLUME 7.3 fL (7.4-10.4); MONOCYTES # (AUTO) 1.26 x10^3/uL (0.2-0.8); MONOCYTES % (AUTO) 13 % (2-9); NEUTROPHILS # (AUTO) 6.11 x10^3/uL (1.8-6.8); NEUTROPHILS % (AUTO) 63 % (42-75); PLATELET COUNT 324 x10^3/uL (130-400); RED BLOOD COUNT 5.43 x10^6/uL (4.38-5.82); RED CELL DISTRIBUTION WIDTH 12.4 % (9.4-14.8); TOTAL PROTEIN 7.2 g/dL (6.4-8.2)
[2018-03-15 07:21] LABS: MD NO
[2018-03-15] MEDS ORDERED: LISI-167 PO (20:09)
[2018-03-15] MEDS ORDERED: ZOLP10TA PO (20:10)
[2018-03-15] MEDS ORDERED: BUPR-86 PO (20:11)
[2018-03-15] MEDS ORDERED: NICOTINE PATCH (20:12)
[2018-03-15] MEDS ORDERED: WELLBUTRIN (20:12)
[2018-03-15] MEDS ORDERED: [UNRECOGNIZED DRUG - CODE] (20:13)
[2018-03-15] MEDS ORDERED: LISINOPRIL 10 MG TABLET PO ONE (20:30)
[2018-03-15] MEDS ORDERED: NICOTINE 14MG/24 HR PATCH.TD24 TD ONE (20:30)
[2018-03-15] MEDS: BUPROPION 100 MG TABLET PO SCH (21:00)
[2018-03-15] MEDS: DIVALPROEX 250 MG TABLET.DR PO SCH (21:00)
[2018-03-15] MEDS ORDERED: NICOTINE 14MG/24 HR PATCH.TD24 ONE ×2 (22:18→22:29)
[2018-03-15] MEDS: ZOLPIDEM 10MG TABLET PO PRN (22:48)
[2018-03-16] MEDS: ARIPIPRAZOLE 10 MG TABLET PO SCH (08:46)
[2018-03-16] MEDS: DIVALPROEX 250 MG TABLET.DR PO SCH ×3 (09:50→21:37)
[2018-03-16] MEDS: BUPROPION 100 MG TABLET PO SCH ×2 (09:50→20:52)
[2018-03-16] MEDS ORDERED: LORazepam 1MG TABLET PO PRN ×2 (17:30)
[2018-03-16] MEDS ORDERED: ONDANSETRON ODT 4 MG PO PRN (17:30)
[2018-03-16 17:48] LABS: BASOPHILS # (AUTO) 0.09 x10^3/uL (0-0.1); BASOPHILS % (AUTO) 1 % (0-1); EOSINOPHILS # (AUTO) 0.49 x10^3/uL (0-0.4); EOSINOPHILS % (AUTO) 5 % (1-7); LYMPHOCYTES # (AUTO) 3.22 x10^3/uL (1-3.4); LYMPHOCYTES % (AUTO) 31 % (22-44); MD NO; MEAN CORPUSCULAR HEMOGLOBIN 31.2 pg (27.5-34.5); MEAN CORPUSCULAR VOLUME 91.8 fL (81-97); MEAN PLATELET VOLUME 7.6 fL (7.4-10.4); MONOCYTES # (AUTO) 1.33 x10^3/uL (0.2-0.8); MONOCYTES % (AUTO) 13 % (2-9); NEUTROPHILS # (AUTO) 5.24 x10^3/uL (1.8-6.8); NEUTROPHILS % (AUTO) 51 % (42-75); PLATELET COUNT 272 x10^3/uL (130-400); RED BLOOD COUNT 5.15 x10^6/uL (4.38-5.82); RED CELL DISTRIBUTION WIDTH 12.9 % (9.4-14.8)
[2018-03-16] MEDS ORDERED: NICOTINE 21 MG/24 HR PATCH.TD24 TD ONE (18:00)
[2018-03-16 18:18] VITALS: BP 122/77
[2018-03-16 20:00] VITALS: BP 111/76
[2018-03-16] MEDS ORDERED: ZOLPIDEM 5MG TABLET ONE (20:48)
[2018-03-16] MEDS ORDERED: ALBUTEROL/IPRATROPIUM 2.5MG/0.5MG, 3 ML NPPB PRN (21:00)
[2018-03-16] MEDS: ZOLPIDEM 10MG TABLET PO PRN (21:36)
[2018-03-17 05:52] LABS: ALBUMIN 3.2 g/dL (3.4-5.0); ANION GAP 5 mmol/L (5-15); CALCIUM 8.8 mg/dL (8.5-10.1); CHLORIDE 104 mmol/L (98-107)
[2018-03-17 05:57] LABS: ALANINE AMINOTRANSFERASE 60 U/L (12-78); ALKALINE PHOSPHATASE 36 U/L (45-117); BILIRUBIN,TOTAL 0.3 mg/dL (0.2-1.0); CREATININE 0.98 mg/dL (0.7-1.3); TOTAL PROTEIN 6.9 g/dL (6.4-8.2)
[2018-03-17 08:18] VITALS: BP 96/61
[2018-03-17] MEDS: DIVALPROEX 250 MG TABLET.DR PO SCH ×3 (08:21→20:35)
[2018-03-17] MEDS: BUPROPION 100 MG TABLET PO SCH ×2 (08:21→20:35)
[2018-03-17] MEDS: ARIPIPRAZOLE 10 MG TABLET PO SCH (08:22)
[2018-03-17 09:15] VITALS: BP 107/71
[2018-03-17] MEDS: LISINOPRIL 10 MG TABLET PO SCH (09:17)
[2018-03-17 19:30] VITALS: BP 111/76
[2018-03-17] MEDS ORDERED: ZOLPIDEM 5MG TABLET ONE (20:44)
[2018-03-17] MEDS: ZOLPIDEM 10MG TABLET PO PRN (20:46)
[2018-03-17] MEDS ORDERED: NICOTINE 14MG/24 HR PATCH.TD24 TD SCH (21:30)
[2018-03-17] MEDS ORDERED: NICOTINE 21 MG/24 HR PATCH.TD24 TD ONE (22:30)
[2018-03-18 08:00] VITALS: BP 113/79
[2018-03-18] MEDS: BUPROPION 100 MG TABLET PO SCH ×2 (09:02→20:26)
[2018-03-18] MEDS: LISINOPRIL 10 MG TABLET PO SCH (09:02)
[2018-03-18] MEDS: DIVALPROEX 250 MG TABLET.DR PO SCH ×2 (09:03→20:27)
[2018-03-18] MEDS: ARIPIPRAZOLE 10 MG TABLET PO SCH (09:03)
[2018-03-18 20:05] VITALS: BP 108/70
[2018-03-18] MEDS ORDERED: ZOLPIDEM 5MG TABLET ONE (20:21)
[2018-03-18] MEDS: ZOLPIDEM 10MG TABLET PO PRN (20:27)
[2018-03-19 07:57] VITALS: BP 110/63
[2018-03-19] MEDS ORDERED: ARIPIPRAZOLE 10 MG TABLET PO SCH (09:00)
[2018-03-19] MEDS: NICOTINE 14MG/24 HR PATCH.TD24 TD SCH (09:05)
[2018-03-19] MEDS: ARIPIPRAZOLE 10 MG TABLET PO SCH (09:05)
[2018-03-19] MEDS: BUPROPION 100 MG TABLET PO SCH ×2 (09:06→20:00)
[2018-03-19] MEDS: DIVALPROEX 250 MG TABLET.DR PO SCH ×2 (09:06→20:01)
[2018-03-19] MEDS: LISINOPRIL 10 MG TABLET PO SCH (09:06)
[2018-03-19 20:28] VITALS: BP 109/71
[2018-03-20 07:50] VITALS: BP 97/62
[2018-03-20] MEDS: BUPROPION 100 MG TABLET PO SCH ×2 (08:41→20:00)
[2018-03-20] MEDS: DIVALPROEX 250 MG TABLET.DR PO SCH ×2 (08:41→20:01)
[2018-03-20] MEDS: NICOTINE 14MG/24 HR PATCH.TD24 TD SCH (08:41)
[2018-03-20] MEDS: ARIPIPRAZOLE 10 MG TABLET PO SCH (08:41)
[2018-03-20 09:38] VITALS: BP 99/65
[2018-03-20] MEDS: LISINOPRIL 10 MG TABLET PO SCH (09:40)
[2018-03-20 19:57] VITALS: BP 109/72
[2018-03-20] MEDS ORDERED: ZOLPIDEM 5MG TABLET ONE (20:03)
[2018-03-20] MEDS: ZOLPIDEM 10MG TABLET PO PRN (20:05)
[2018-03-21 08:15] VITALS: BP 100/67
[2018-03-21] MEDS: DIVALPROEX 250 MG TABLET.DR PO SCH ×2 (08:27→20:43)
[2018-03-21] MEDS: ARIPIPRAZOLE 10 MG TABLET PO SCH (08:27)
[2018-03-21] MEDS: BUPROPION 100 MG TABLET PO SCH ×2 (08:28→20:43)
[2018-03-21] MEDS: NICOTINE 14MG/24 HR PATCH.TD24 TD SCH (08:34)
[2018-03-21 19:58] VITALS: BP 88/58
[2018-03-21] MEDS ORDERED: ZOLPIDEM 5MG TABLET ONE (20:47)
[2018-03-22 08:00] VITALS: BP 110/74
[2018-03-22] MEDS: BUPROPION 100 MG TABLET PO SCH (09:45)
[2018-03-22] MEDS: ARIPIPRAZOLE 10 MG TABLET PO SCH (09:45)
[2018-03-22] MEDS: DIVALPROEX 250 MG TABLET.DR PO SCH (09:45)
[2018-03-22] MEDS: NICOTINE 14MG/24 HR PATCH.TD24 TD SCH (09:46)
== END 2018-03-22 15:05 | DRG 101 ==
LOC: ED 07:47 → EDIP 03-16 16:31 → 3E 03-16 17:56 → OBSVTOIN 03-17 15:40 → 3E 03-20 22:41
PROVIDERS: ADMIT Internal Medicine; ATTEND Internal Medicine
DX: G40.909 Epilepsy, unspecified, not intractable, without status epilepticus (principal); E44.1 Mild protein-calorie malnutrition; I11.9 Hypertensive heart disease without heart failure; R45.851 Suicidal ideations; F23 Brief psychotic disorder; E11.9 Type 2 diabetes mellitus without complications; Z68.26 Body mass index [BMI] 26.0-26.9, adult; F17.200 Nicotine dependence, unspecified, uncomplicated; F25.9 Schizoaffective disorder, unspecified; F31.9 Bipolar disorder, unspecified; F41.1 Generalized anxiety disorder; F43.10 Post-traumatic stress disorder, unspecified; F15.10 Other stimulant abuse, uncomplicated; J44.9 Chronic obstructive pulmonary disease, unspecified; R45.850 Homicidal ideations; Z79.899 Other long term (current) drug therapy; Z91.14 Patient's other noncompliance with medication regimen
CPT/HCPCS: 36415; 80053; 80164; 80307; 80329; 85025; 93005; G0378; J3486; G0480

== ENCOUNTER 2018-05-07 19:25 | Emergency (ER) | payer MEDICAID ==
[~2018-05-07] VITALS: Ht 170.2 cm; Wt 78.0 kg
[~2018-05-07 19:25] MED LIST changes: +BUPR-86 PO; +LISI-167 PO; +NICOTINE PATCH; +OXYC-432 PO; -OXYC1TAB9 PO; +WELLBUTRIN; +ZOLP10TA PO; +[UNRECOGNIZED DRUG - CODE]
[2018-05-07 20:11] LABS: ALANINE AMINOTRANSFERASE 58 U/L (12-78); ANION GAP 8 mmol/L (5-15); CALCIUM 8.9 mg/dL (8.5-10.1); CHLORIDE 109 mmol/L (98-107); CREATININE 1.37 mg/dL (0.7-1.3); SALICYLATE LEVEL 3.5 mg/dL (2.8-20.0)
[2018-05-07 20:13] LABS: AMPHETAMINE SCREEN, URINE Positive (Negative); BARBITURATE SCREEN, URINE Negative (Negative); BENZODIAZEPINE SCREEN, URINE Negative (Negative); CANNABINOID SCREEN, URINE Negative (Negative); COCAINE SCREEN, URINE Negative (Negative); METHADONE SCREEN, URINE Negative (Negative); OPIATE SCREEN, URINE Negative (Negative)
[2018-05-07 20:13] LABS: ACETAMINOPHEN < 2 mcg/mL (10-30); ALKALINE PHOSPHATASE 47 U/L (45-117); BILIRUBIN,TOTAL 0.9 mg/dL (0.2-1.0); TOTAL PROTEIN 8.3 g/dL (6.4-8.2)
[2018-05-07 20:17] LABS: MEAN CORPUSCULAR HEMOGLOBIN 31.5 pg (27.5-34.5); MEAN CORPUSCULAR VOLUME 92.7 fL (81-97); MEAN PLATELET VOLUME 7.8 fL (7.4-10.4); PLATELET COUNT 347 x10^3/uL (130-400); RED BLOOD COUNT 5.28 x10^6/uL (4.38-5.82); RED CELL DISTRIBUTION WIDTH 13.4 % (9.4-14.8)
[2018-05-07 20:51] LABS: BASOPHILS # (AUTO) 0.07 x10^3/uL (0-0.1); BASOPHILS % (AUTO) 1 % (0-1); EOSINOPHILS # (AUTO) 0.21 x10^3/uL (0-0.4); EOSINOPHILS % (AUTO) 2 % (1-7); LYMPHOCYTES # (AUTO) 3.94 x10^3/uL (1-3.4); LYMPHOCYTES % (AUTO) 33 % (22-44); MD NO; MONOCYTES # (AUTO) 1.47 x10^3/uL (0.2-0.8); MONOCYTES % (AUTO) 13 % (2-9); NEUTROPHILS # (AUTO) 6.09 x10^3/uL (1.8-6.8); NEUTROPHILS % (AUTO) 52 % (42-75)
[2018-05-07 21:38] VITALS: BP 137/87
== END 2018-05-07 21:40 | disposition home or self-care (01) ==
LOC: ED 19:44
DX: F20.9 Schizophrenia, unspecified (principal); F16.10 Hallucinogen abuse, uncomplicated; I10 Essential (primary) hypertension; E11.9 Type 2 diabetes mellitus without complications; J44.9 Chronic obstructive pulmonary disease, unspecified; G43.009 Migraine without aura, not intractable, without status migrainosus
CPT/HCPCS: 36415; 80053; 80307; 80329; 82962; 85025; 99284; G0480

== ENCOUNTER 2018-05-08 02:29 | Emergency (ER) | payer MEDICAID ==
[~2018-05-08] VITALS: Ht 170.2 cm; Wt 78.0 kg
[2018-05-08 02:29] VITALS: BP 138/90
[2018-05-08] MEDS ORDERED: OLANZAPINE 5 MG TABLET ONE (05:56)
[2018-05-08] MEDS ORDERED: OLANZAPINE 5 MG TABLET PO ONE (06:00)
== END 2018-05-08 09:13 | disposition home or self-care (01) ==
LOC: ED 03:19
DX: F20.0 Paranoid schizophrenia (principal); F15.951 Other stimulant use, unspecified with stimulant-induced psychotic disorder with hallucinations; F31.9 Bipolar disorder, unspecified; I10 Essential (primary) hypertension; E11.9 Type 2 diabetes mellitus without complications; J44.9 Chronic obstructive pulmonary disease, unspecified
CPT/HCPCS: 36415; 80164; 93005; 99285

== ENCOUNTER 2018-05-08 17:06 | Emergency (ER) | payer MEDICAID ==
[~2018-05-08] VITALS: Ht 170.2 cm; Wt 77.7 kg
[2018-05-08 17:53] LABS: BASOPHILS # (AUTO) 0.04 x10^3/uL (0-0.1); BASOPHILS % (AUTO) 0 % (0-1); EOSINOPHILS # (AUTO) 0.29 x10^3/uL (0-0.4); EOSINOPHILS % (AUTO) 3 % (1-7); LYMPHOCYTES # (AUTO) 3.16 x10^3/uL (1-3.4); LYMPHOCYTES % (AUTO) 31 % (22-44); MD NO; MEAN CORPUSCULAR HEMOGLOBIN 31.9 pg (27.5-34.5); MEAN CORPUSCULAR HGB CONC 34.4 g/dL (33.2-36.2); MEAN CORPUSCULAR VOLUME 92.6 fL (81-97); MEAN PLATELET VOLUME 7.5 fL (7.4-10.4); MONOCYTES # (AUTO) 1.27 x10^3/uL (0.2-0.8); MONOCYTES % (AUTO) 13 % (2-9); NEUTROPHILS # (AUTO) 5.49 x10^3/uL (1.8-6.8); NEUTROPHILS % (AUTO) 54 % (42-75); PLATELET COUNT 306 x10^3/uL (130-400); RED BLOOD COUNT 5.01 x10^6/uL (4.38-5.82); RED CELL DISTRIBUTION WIDTH 13.2 % (9.4-14.8)
[2018-05-08] MEDS ORDERED: ZIPRASIDONE 20MG CAPSULE PO SCH (18:00)
[2018-05-08 18:05] LABS: ALANINE AMINOTRANSFERASE 52 U/L (12-78); ALBUMIN 3.7 g/dL (3.4-5.0); ANION GAP 5 mmol/L (5-15); CALCIUM 8.4 mg/dL (8.5-10.1); CHLORIDE 110 mmol/L (98-107); CREATININE 1.11 mg/dL (0.7-1.3); SALICYLATE LEVEL 3.7 mg/dL (2.8-20.0)
[2018-05-08 18:06] LABS: ALKALINE PHOSPHATASE 44 U/L (45-117); BILIRUBIN,TOTAL 0.6 mg/dL (0.2-1.0); TOTAL PROTEIN 7.8 g/dL (6.4-8.2)
[2018-05-08 18:08] LABS: ACETAMINOPHEN < 2 mcg/mL (10-30)
[2018-05-08] MEDS ORDERED: ZIPRASIDONE 20MG CAPSULE ONE (18:08)
[2018-05-08 18:27] LABS: AMPHETAMINE SCREEN, URINE Positive (Negative); BARBITURATE SCREEN, URINE Negative (Negative); BENZODIAZEPINE SCREEN, URINE Negative (Negative); CANNABINOID SCREEN, URINE Negative (Negative); COCAINE SCREEN, URINE Negative (Negative); METHADONE SCREEN, URINE Negative (Negative); OPIATE SCREEN, URINE Negative (Negative)
[2018-05-08 22:43] VITALS: BP 116/70
== END 2018-05-09 01:51 | disposition home or self-care (01) ==
LOC: ED 17:55
DX: F19.959 Other psychoactive substance use, unspecified with psychoactive substance-induced psychotic disorder, unspecified (principal); F24 Shared psychotic disorder; R44.3 Hallucinations, unspecified; J44.9 Chronic obstructive pulmonary disease, unspecified; E11.9 Type 2 diabetes mellitus without complications; F20.9 Schizophrenia, unspecified; Z79.899 Other long term (current) drug therapy
CPT/HCPCS: 36415; 80053; 80307; 80329; 85025; 99284; G0480

== ENCOUNTER 2018-05-09 02:50 | Emergency (ER) | payer MEDICAID | END 2018-05-09 02:57 | disposition left against medical advice (07) | LOC: ED 02:55 | DX: Z53.21 Procedure and treatment not carried out due to patient leaving prior to being seen by health care provider (principal) ==

== ENCOUNTER 2018-08-03 15:23 | Emergency (ER) | payer MEDICAID ==
[~2018-08-03] VITALS: Ht 170.2 cm; Wt 75.7 kg
[2018-08-03 15:43] LABS: BASOPHILS # (AUTO) 0.07 x10^3/uL (0-0.1); BASOPHILS % (AUTO) 1 % (0-1); EOSINOPHILS # (AUTO) 0.17 x10^3/uL (0-0.4); EOSINOPHILS % (AUTO) 2 % (1-7); LYMPHOCYTES # (AUTO) 3.29 x10^3/uL (1-3.4); LYMPHOCYTES % (AUTO) 29 % (22-44); MD NO; MEAN CORPUSCULAR HEMOGLOBIN 30.8 pg (27.5-34.5); MEAN CORPUSCULAR VOLUME 90.7 fL (81-97); MEAN PLATELET VOLUME 8.1 fL (7.4-10.4); MONOCYTES % (AUTO) 11 % (2-9); NEUTROPHILS # (AUTO) 6.72 x10^3/uL (1.8-6.8); NEUTROPHILS % (AUTO) 59 % (42-75); PLATELET COUNT 302 x10^3/uL (130-400); RED BLOOD COUNT 5.12 x10^6/uL (4.38-5.82); RED CELL DISTRIBUTION WIDTH 12.4 % (9.4-14.8)
[2018-08-03] MEDS ORDERED: SERT50TA PO (15:51)
[2018-08-03 15:55] LABS: ALBUMIN 4.1 g/dL (3.4-5.0); ANION GAP 8 mmol/L (5-15); CALCIUM 8.7 mg/dL (8.5-10.1); CHLORIDE 106 mmol/L (98-107); CREATININE 1.11 mg/dL (0.7-1.3)
[2018-08-03 15:57] LABS: SALICYLATE LEVEL < 1.7 mg/dL (2.8-20.0)
[2018-08-03 16:01] LABS: ACETAMINOPHEN < 2 mcg/mL (10-30)
[2018-08-03 16:38] VITALS: BP 163/98
== END 2018-08-03 16:41 | disposition home or self-care (01) ==
LOC: ED 16:11
DX: F15.10 Other stimulant abuse, uncomplicated (principal); F31.9 Bipolar disorder, unspecified; F43.10 Post-traumatic stress disorder, unspecified; M79.7 Fibromyalgia; F20.9 Schizophrenia, unspecified; J44.9 Chronic obstructive pulmonary disease, unspecified; E11.9 Type 2 diabetes mellitus without complications; I10 Essential (primary) hypertension; Z91.14 Patient's other noncompliance with medication regimen; Z60.9 Problem related to social environment, unspecified; Z72.9 Problem related to lifestyle, unspecified
CPT/HCPCS: 36415; 80048; 80307; 80329; 82040; 85025; 99284; G0480

== ENCOUNTER 2018-09-14 18:14 | Observation (INO) | payer MEDICAID ==
[~2018-09-14] VITALS: Ht 170.2 cm; Wt 77.0 kg
[~2018-09-14 18:14] MED LIST changes: +SERT50TA PO
[2018-09-14] MEDS ORDERED: OLANZAPINE 10 MG TABLET PO ONE (18:30)
[2018-09-14 18:49] LABS: BASOPHILS # (AUTO) 0.02 x10^3/uL (0-0.1); BASOPHILS % (AUTO) 0 % (0-1); EOSINOPHILS # (AUTO) 0.34 x10^3/uL (0-0.4); EOSINOPHILS % (AUTO) 3 % (1-7); LYMPHOCYTES # (AUTO) 3.49 x10^3/uL (1-3.4); LYMPHOCYTES % (AUTO) 32 % (22-44); MD NO; MEAN CORPUSCULAR HEMOGLOBIN 30.7 pg (27.5-34.5); MEAN CORPUSCULAR HGB CONC 34.6 g/dL (33.2-36.2); MEAN CORPUSCULAR VOLUME 88.7 fL (81-97); MEAN PLATELET VOLUME 7.8 fL (7.4-10.4); MONOCYTES % (AUTO) 9 % (2-9); NEUTROPHILS # (AUTO) 6.19 x10^3/uL (1.8-6.8); NEUTROPHILS % (AUTO) 56 % (42-75); PLATELET COUNT 392 x10^3/uL (130-400); RED BLOOD COUNT 5.45 x10^6/uL (4.38-5.82); RED CELL DISTRIBUTION WIDTH 12.3 % (9.4-14.8)
[2018-09-14 19:00] LABS: ALBUMIN 3.6 g/dL (3.4-5.0); ANION GAP 8 mmol/L (5-15); CALCIUM 8.5 mg/dL (8.5-10.1); CHLORIDE 108 mmol/L (98-107); CREATININE 0.85 mg/dL (0.7-1.3)
[2018-09-14 19:01] LABS: ACETAMINOPHEN < 2 mcg/mL (10-30); SALICYLATE LEVEL < 1.7 mg/dL (2.8-20.0)
[2018-09-14] MEDS ORDERED: OLAN10TA3 PO (19:16)
[2018-09-14 19:18] LABS: AMPHETAMINE SCREEN, URINE Positive (Negative); BARBITURATE SCREEN, URINE Negative (Negative); BENZODIAZEPINE SCREEN, URINE Negative (Negative); CANNABINOID SCREEN, URINE Negative (Negative); COCAINE SCREEN, URINE Negative (Negative); METHADONE SCREEN, URINE Negative (Negative); OPIATE SCREEN, URINE Negative (Negative)
[2018-09-14] MEDS ORDERED: OLANZAPINE 10 MG TABLET ONE (19:32)
[2018-09-14] MEDS ORDERED: ACETAMINOPHEN 325 MG TABLET PO PRN (21:30)
[2018-09-14] MEDS ORDERED: ZOLPIDEM 5MG TABLET PO PRN (21:30)
[2018-09-14] MEDS ORDERED: ONDANSETRON ODT 4 MG PO PRN (21:30)
[2018-09-14 22:41] VITALS: BP 104/73
[2018-09-15 07:36] VITALS: BP 97/63
[2018-09-15 13:37] VITALS: BP_SYST 107; BP_SYST 88; BP_DIAS 58; BP_DIAS 70; BP_DIAS 74
[2018-09-15 19:55] VITALS: BP 115/73
[2018-09-16 08:00] VITALS: BP 101/66
[2018-09-16] MEDS ORDERED: DEPAKOTE (13:57)
[2018-09-16] MEDS ORDERED: BUPR150T73 PO (13:57)
[2018-09-16] MEDS ORDERED: DEUT6TAB PO (13:57)
[2018-09-16] MEDS: NICOTINE 21 MG/24 HR PATCH.TD24 TD SCH (17:46)
[2018-09-16 19:55] VITALS: BP 119/72
[2018-09-16] MEDS: DIVALPROEX 250 MG TABLET.DR PO SCH (20:58)
[2018-09-16] MEDS: BUPROPION SR 150 MG TABLET PO SCH (20:58)
[2018-09-16] MEDS ORDERED: SERTRALINE 100MG TABLET PO SCH (21:00)
[2018-09-17 07:49] VITALS: BP 103/69
[2018-09-17] MEDS: NICOTINE 21 MG/24 HR PATCH.TD24 TD SCH (08:49)
[2018-09-17] MEDS: DIVALPROEX 250 MG TABLET.DR PO SCH (08:49)
[2018-09-17] MEDS: BUPROPION SR 150 MG TABLET PO SCH (08:49)
[2018-09-17] MEDS ORDERED: NICOTINE 21 MG/24 HR PATCH.TD24 TD SCH (09:00)
== END 2018-09-17 15:07 ==
LOC: ED 20:05 → INTOOBSV 20:33 → EDIP 20:33 → SUATTDRO 21:06 → 2N 22:33
PROVIDERS: ADMIT Hospitalist; ATTEND Hospitalist
DX: R45.851 Suicidal ideations (principal); F15.10 Other stimulant abuse, uncomplicated; F17.200 Nicotine dependence, unspecified, uncomplicated; F31.9 Bipolar disorder, unspecified; F43.10 Post-traumatic stress disorder, unspecified; I10 Essential (primary) hypertension; F20.9 Schizophrenia, unspecified; Z59.0 Homelessness; Z91.5 Personal history of self-harm
CPT/HCPCS: 36415; 80048; 80307; 80329; 82040; 85025; 99285; G0378; Q0177; G0480

== ENCOUNTER 2018-09-17 13:53 | Inpatient (IN) | payer MEDICAID ==
[~2018-09-17] VITALS: Ht 170.2 cm; Wt 76.3 kg
[~2018-09-17 13:53] MED LIST changes: +BUPR150T73 PO; +DEPAKOTE; +DEUT6TAB PO; +OLAN10TA3 PO
[2018-09-17] MEDS ORDERED: POLYETHYLENE GLYCOL 17 GM PACKET PO PRN (14:30)
[2018-09-17] MEDS ORDERED: DOCUSATE 100 MG CAPSULE PO PRN (14:30)
[2018-09-17] MEDS ORDERED: BISACODYL 10 MG SUPP PR PRN (14:30)
[2018-09-17] MEDS ORDERED: ONDANSETRON ODT 4 MG PO PRN (14:30)
[2018-09-17 15:38] VITALS: BP 107/65
[2018-09-17 15:46] VITALS: BP 107/65
[2018-09-17 19:26] VITALS: BP 107/75
[2018-09-18 06:23] LABS: CHOL/HDL RATIO 4.2; LDL/HDL RATIO 2.1 (0.5-3.0); T4 (THYROXINE) 9.5 mcg/dL (4.5-12.1); THYROID STIMULATING HORMONE 0.606 mIU/L (0.358-3.740)
[2018-09-18 06:27] LABS: HCT (SEDRATE) 43.9 % (39.2-51.8)
[2018-09-18 07:45] VITALS: BP 114/77
[2018-09-18] MEDS: SENNA/DOCUSATE TABLET PO SCH (08:55)
[2018-09-18 14:49] LABS: MICROSCOPIC NOT IND
[2018-09-18 14:58] LABS: CULTURE INDICATED? NO
[2018-09-18 19:34] VITALS: BP 103/69
[2018-09-18] MEDS: DIVALPROEX 500 MG TAB.ER.24H PO SCH (20:08)
[2018-09-18] MEDS: NICOTINE 21 MG/24 HR PATCH.TD24 TD SCH (20:08)
[2018-09-18] MEDS: AMANTADINE 100 MG CAPSULE PO SCH (20:08)
[2018-09-19 07:54] VITALS: BP 107/79
[2018-09-19] MEDS: NICOTINE 21 MG/24 HR PATCH.TD24 TD SCH (08:18)
[2018-09-19] MEDS: AMANTADINE 100 MG CAPSULE PO SCH ×3 (08:18→21:03)
[2018-09-19] MEDS: SENNA/DOCUSATE TABLET PO SCH (08:18)
[2018-09-19] MEDS: ARIPIPRAZOLE 5 MG TABLET PO SCH (08:18)
[2018-09-19] MEDS: SERTRALINE 100MG TABLET PO SCH (08:18)
[2018-09-19] MEDS: DIVALPROEX 500 MG TAB.ER.24H PO SCH ×2 (08:18→21:02)
[2018-09-19 19:35] VITALS: BP 93/57
[2018-09-19] MEDS: TRAZODONE 50MG TABLET PO SCH (21:03)
[2018-09-19] MEDS: ACETAMINOPHEN 325 MG TABLET PO PRN (21:03)
[2018-09-20 07:57] VITALS: BP 107/77
[2018-09-20] MEDS: ACETAMINOPHEN 325 MG TABLET PO PRN (08:09)
[2018-09-20] MEDS: SERTRALINE 100MG TABLET PO SCH (08:09)
[2018-09-20] MEDS: AMANTADINE 100 MG CAPSULE PO SCH ×3 (08:09→20:26)
[2018-09-20] MEDS: SENNA/DOCUSATE TABLET PO SCH (08:09)
[2018-09-20] MEDS: ARIPIPRAZOLE 5 MG TABLET PO SCH (08:09)
[2018-09-20] MEDS: DIVALPROEX 500 MG TAB.ER.24H PO SCH ×2 (08:09→20:26)
[2018-09-20] MEDS: NICOTINE 21 MG/24 HR PATCH.TD24 TD SCH (08:09)
[2018-09-20 19:46] VITALS: BP 105/72
[2018-09-20] MEDS: TRAZODONE 50MG TABLET PO SCH (20:26)
[2018-09-21 07:46] VITALS: BP 106/72
[2018-09-21] MEDS: AMANTADINE 100 MG CAPSULE PO SCH ×3 (09:03→20:06)
[2018-09-21] MEDS: DIVALPROEX 500 MG TAB.ER.24H PO SCH ×2 (09:04→20:06)
[2018-09-21] MEDS: SERTRALINE 100MG TABLET PO SCH (09:04)
[2018-09-21] MEDS: ARIPIPRAZOLE 5 MG TABLET PO SCH (09:04)
[2018-09-21] MEDS: SENNA/DOCUSATE TABLET PO SCH (09:05)
[2018-09-21] MEDS: NICOTINE 21 MG/24 HR PATCH.TD24 TD SCH (09:05)
[2018-09-21 20:00] VITALS: BP 115/75
[2018-09-21] MEDS: TRAZODONE 50MG TABLET PO SCH (20:06)
[2018-09-22 08:02] VITALS: BP 116/78
[2018-09-22] MEDS: ARIPIPRAZOLE 5 MG TABLET PO SCH (08:39)
[2018-09-22] MEDS: SERTRALINE 100MG TABLET PO SCH (08:39)
[2018-09-22] MEDS: SENNA/DOCUSATE TABLET PO SCH (08:39)
[2018-09-22] MEDS: AMANTADINE 100 MG CAPSULE PO SCH ×3 (08:39→20:37)
[2018-09-22] MEDS: DIVALPROEX 500 MG TAB.ER.24H PO SCH ×2 (08:39→20:37)
[2018-09-22] MEDS: NICOTINE 21 MG/24 HR PATCH.TD24 TD SCH (08:40)
[2018-09-22 19:32] VITALS: BP 116/78
[2018-09-22] MEDS: TRAZODONE 50MG TABLET PO SCH (20:37)
[2018-09-23 07:30] VITALS: BP 118/76
[2018-09-23] MEDS: NICOTINE 21 MG/24 HR PATCH.TD24 TD SCH (08:14)
[2018-09-23] MEDS: AMANTADINE 100 MG CAPSULE PO SCH ×3 (08:14→20:15)
[2018-09-23] MEDS: SERTRALINE 100MG TABLET PO SCH (08:14)
[2018-09-23] MEDS: DIVALPROEX 500 MG TAB.ER.24H PO SCH ×2 (08:14→20:15)
[2018-09-23] MEDS: SENNA/DOCUSATE TABLET PO SCH (08:14)
[2018-09-23] MEDS: ARIPIPRAZOLE 5 MG TABLET PO SCH (08:14)
[2018-09-23 19:45] VITALS: BP 101/69
[2018-09-23] MEDS: TRAZODONE 50MG TABLET PO SCH (20:15)
[2018-09-24 08:03] VITALS: BP 109/70
[2018-09-24] MEDS: AMANTADINE 100 MG CAPSULE PO SCH ×3 (08:15→20:31)
[2018-09-24] MEDS: ARIPIPRAZOLE 5 MG TABLET PO SCH (08:15)
[2018-09-24] MEDS: SERTRALINE 100MG TABLET PO SCH (08:15)
[2018-09-24] MEDS: DIVALPROEX 500 MG TAB.ER.24H PO SCH ×2 (08:15→20:31)
[2018-09-24] MEDS: NICOTINE 21 MG/24 HR PATCH.TD24 TD SCH (08:15)
[2018-09-24] MEDS: SENNA/DOCUSATE TABLET PO SCH (08:15)
[2018-09-24 19:22] VITALS: BP 119/80
[2018-09-24] MEDS: TRAZODONE 50MG TABLET PO SCH (20:31)
[2018-09-25 07:45] VITALS: BP 116/80
[2018-09-25] MEDS: DIVALPROEX 500 MG TAB.ER.24H PO SCH ×2 (08:16→20:30)
[2018-09-25] MEDS: SERTRALINE 100MG TABLET PO SCH (08:16)
[2018-09-25] MEDS: SENNA/DOCUSATE TABLET PO SCH (08:16)
[2018-09-25] MEDS: AMANTADINE 100 MG CAPSULE PO SCH ×3 (08:16→20:30)
[2018-09-25] MEDS: NICOTINE 21 MG/24 HR PATCH.TD24 TD SCH (08:16)
[2018-09-25] MEDS: ARIPIPRAZOLE 5 MG TABLET PO SCH (08:16)
[2018-09-25 19:22] VITALS: BP 103/58
[2018-09-25] MEDS: TRAZODONE 50MG TABLET PO SCH (20:30)
[2018-09-26 07:46] VITALS: BP 117/80
[2018-09-26] MEDS: ARIPIPRAZOLE 5 MG TABLET PO SCH (08:56)
[2018-09-26] MEDS: SERTRALINE 100MG TABLET PO SCH (08:56)
[2018-09-26] MEDS: DIVALPROEX 500 MG TAB.ER.24H PO SCH ×2 (08:56→20:27)
[2018-09-26] MEDS: SENNA/DOCUSATE TABLET PO SCH (08:56)
[2018-09-26] MEDS: AMANTADINE 100 MG CAPSULE PO SCH ×3 (08:56→20:27)
[2018-09-26] MEDS: NICOTINE 21 MG/24 HR PATCH.TD24 TD SCH (08:57)
[2018-09-26 19:57] VITALS: BP 107/74
[2018-09-26] MEDS: TRAZODONE 50MG TABLET PO SCH (20:27)
[2018-09-27 08:14] VITALS: BP 100/65
[2018-09-27] MEDS: DIVALPROEX 500 MG TAB.ER.24H PO SCH (09:24)
[2018-09-27] MEDS: SERTRALINE 100MG TABLET PO SCH (09:24)
[2018-09-27] MEDS: NICOTINE 21 MG/24 HR PATCH.TD24 TD SCH (09:24)
[2018-09-27] MEDS: SENNA/DOCUSATE TABLET PO SCH (09:24)
[2018-09-27] MEDS: AMANTADINE 100 MG CAPSULE PO SCH ×2 (09:24→16:04)
[2018-09-27] MEDS: ARIPIPRAZOLE 5 MG TABLET PO SCH (09:28)
== END 2018-09-27 11:30 | disposition home or self-care (01) | DRG 885 ==
LOC: 3E 15:33
PROVIDERS: ADMIT Counselor Mental Health; ATTEND Counselor Mental Health
DX: F31.30 Bipolar disorder, current episode depressed, mild or moderate severity, unspecified (principal); R45.851 Suicidal ideations; F15.20 Other stimulant dependence, uncomplicated; K59.00 Constipation, unspecified; G47.00 Insomnia, unspecified; Z79.899 Other long term (current) drug therapy; F43.10 Post-traumatic stress disorder, unspecified; Z83.3 Family history of diabetes mellitus; F17.200 Nicotine dependence, unspecified, uncomplicated
CPT/HCPCS: 36415; 71045; 80061; 81003; 82140; 82607; 84436; 84443; 85651; 86592; 92523-GN

== ENCOUNTER 2018-10-02 14:06 | Observation (INO) | payer MEDICAID ==
[~2018-10-02] VITALS: Ht 170.2 cm; Wt 75.8 kg
[2018-10-02] MEDS ORDERED: LORazepam 1MG TABLET PO ONE ×2 (15:00→18:00)
[2018-10-02] MEDS ORDERED: LORazepam 1MG TABLET ONE ×2 (15:10→17:52)
[2018-10-02 15:21] LABS: BASOPHILS # (AUTO) 0.08 x10^3/uL (0-0.1); BASOPHILS % (AUTO) 1 % (0-1); EOSINOPHILS # (AUTO) 0.56 x10^3/uL (0-0.4); EOSINOPHILS % (AUTO) 5 % (1-7); LYMPHOCYTES # (AUTO) 3.29 x10^3/uL (1-3.4); LYMPHOCYTES % (AUTO) 29 % (22-44); MD NO; MEAN CORPUSCULAR HEMOGLOBIN 30.5 pg (27.5-34.5); MEAN CORPUSCULAR HGB CONC 34.3 g/dL (33.2-36.2); MEAN PLATELET VOLUME 8.4 fL (7.4-10.4); MONOCYTES # (AUTO) 1.15 x10^3/uL (0.2-0.8); MONOCYTES % (AUTO) 10 % (2-9); NEUTROPHILS # (AUTO) 6.46 x10^3/uL (1.8-6.8); NEUTROPHILS % (AUTO) 56 % (42-75); PLATELET COUNT 320 x10^3/uL (130-400); RED BLOOD COUNT 5.21 x10^6/uL (4.38-5.82); RED CELL DISTRIBUTION WIDTH 12.5 % (9.4-14.8)
[2018-10-02 15:27] LABS: ALANINE AMINOTRANSFERASE 43 U/L (12-78); ALBUMIN 4.2 g/dL (3.4-5.0); ANION GAP 11 mmol/L (5-15); CALCIUM 8.4 mg/dL (8.5-10.1); CHLORIDE 103 mmol/L (98-107); CREATININE 1.03 mg/dL (0.7-1.3)
[2018-10-02 15:29] LABS: ALKALINE PHOSPHATASE 48 U/L (45-117); BILIRUBIN,TOTAL 0.5 mg/dL (0.2-1.0); TOTAL PROTEIN 8.2 g/dL (6.4-8.2)
[2018-10-02 15:30] LABS: ACETAMINOPHEN < 2 mcg/mL (10-30)
[2018-10-02] MEDS ORDERED: ZOLPIDEM 10MG TABLET PO PRN (17:00)
[2018-10-02] MEDS ORDERED: ACETAMINOPHEN 325 MG TABLET PO PRN ×2 (17:00)
[2018-10-02 17:24] LABS: AMPHETAMINE SCREEN, URINE Positive (Negative); BARBITURATE SCREEN, URINE Negative (Negative); BENZODIAZEPINE SCREEN, URINE Negative (Negative); CANNABINOID SCREEN, URINE Negative (Negative); COCAINE SCREEN, URINE Negative (Negative); METHADONE SCREEN, URINE Negative (Negative); OPIATE SCREEN, URINE Negative (Negative)
[2018-10-02] MEDS ORDERED: ZIPRASIDONE 20MG CAPSULE ONE (17:52)
[2018-10-02] MEDS ORDERED: ZIPRASIDONE 20MG CAPSULE PO ONE (18:00)
[2018-10-02 19:50] LABS: MICROSCOPIC NOT IND
[2018-10-02 19:54] LABS: CULTURE INDICATED? NO
[2018-10-02] MEDS: SIMVASTATIN 20 MG TABLET PO SCH (22:31)
[2018-10-02] MEDS: SERTRALINE 100MG TABLET PO SCH (22:31)
[2018-10-02] MEDS: BUPROPION SR 150 MG TABLET PO SCH (22:31)
[2018-10-02] MEDS: DIVALPROEX 250 MG TABLET.DR PO SCH (22:31)
[2018-10-03] MEDS ORDERED: OLANZAPINE 5 MG TABLET ONE (08:21)
[2018-10-03] MEDS ORDERED: DIVALPROEX 500 MG TAB.ER.24H ONE (08:21)
[2018-10-03] MEDS ORDERED: ARIPIPRAZOLE 10 MG TABLET ONE (08:21)
[2018-10-03] MEDS: BUPROPION SR 150 MG TABLET PO SCH ×2 (09:05→20:47)
[2018-10-03] MEDS: OLANZAPINE 5 MG TABLET PO SCH (09:05)
[2018-10-03] MEDS: DIVALPROEX 250 MG TABLET.DR PO SCH ×2 (09:05→20:47)
[2018-10-03] MEDS: ARIPIPRAZOLE 10 MG TABLET PO SCH (09:06)
[2018-10-03] MEDS ORDERED: SERTRALINE 50MG TABLET ONE (20:22)
[2018-10-03] MEDS: SERTRALINE 100MG TABLET PO SCH (20:48)
[2018-10-03] MEDS: SIMVASTATIN 20 MG TABLET PO SCH (20:48)
[2018-10-04] MEDS ORDERED: ARIPIPRAZOLE 10 MG TABLET ONE (07:04)
[2018-10-04] MEDS ORDERED: OLANZAPINE 5 MG TABLET ONE (07:04)
[2018-10-04] MEDS: ARIPIPRAZOLE 10 MG TABLET PO SCH (08:57)
[2018-10-04] MEDS: OLANZAPINE 5 MG TABLET PO SCH (08:57)
[2018-10-04] MEDS: BUPROPION SR 150 MG TABLET PO SCH ×2 (08:57→21:07)
[2018-10-04] MEDS: DIVALPROEX 250 MG TABLET.DR PO SCH ×2 (08:57→21:08)
[2018-10-04 20:07] VITALS: BP 106/68
[2018-10-04] MEDS: SERTRALINE 100MG TABLET PO SCH (21:07)
[2018-10-04] MEDS: SIMVASTATIN 20 MG TABLET PO SCH (21:07)
[2018-10-05 07:15] VITALS: BP 108/75
[2018-10-05] MEDS: ARIPIPRAZOLE 10 MG TABLET PO SCH (08:55)
[2018-10-05] MEDS: OLANZAPINE 5 MG TABLET PO SCH (08:56)
[2018-10-05] MEDS: DIVALPROEX 250 MG TABLET.DR PO SCH ×2 (08:56→20:56)
[2018-10-05] MEDS: BUPROPION SR 150 MG TABLET PO SCH ×2 (08:56→20:56)
[2018-10-05 20:03] VITALS: BP 95/60
[2018-10-05] MEDS: SIMVASTATIN 20 MG TABLET PO SCH (20:56)
[2018-10-05] MEDS: SERTRALINE 100MG TABLET PO SCH (20:56)
[2018-10-06] MEDS: ARIPIPRAZOLE 10 MG TABLET PO SCH (08:16)
[2018-10-06] MEDS: DIVALPROEX 250 MG TABLET.DR PO SCH ×2 (08:16→21:28)
[2018-10-06] MEDS: OLANZAPINE 5 MG TABLET PO SCH (08:17)
[2018-10-06] MEDS: BUPROPION SR 150 MG TABLET PO SCH ×2 (08:17→21:38)
[2018-10-06 08:49] VITALS: BP 105/67
[2018-10-06 20:00] VITALS: BP 112/75
[2018-10-06] MEDS: SERTRALINE 100MG TABLET PO SCH (21:37)
[2018-10-06] MEDS: SIMVASTATIN 20 MG TABLET PO SCH (21:38)
[2018-10-07 07:19] VITALS: BP 115/76
[2018-10-07] MEDS: ARIPIPRAZOLE 10 MG TABLET PO SCH (08:55)
[2018-10-07] MEDS: DIVALPROEX 250 MG TABLET.DR PO SCH ×2 (08:55→20:10)
[2018-10-07] MEDS: OLANZAPINE 5 MG TABLET PO SCH (08:55)
[2018-10-07] MEDS: BUPROPION SR 150 MG TABLET PO SCH ×2 (08:55→20:11)
[2018-10-07 19:33] VITALS: BP 105/72
[2018-10-07] MEDS: SERTRALINE 100MG TABLET PO SCH (20:10)
[2018-10-07] MEDS: SIMVASTATIN 20 MG TABLET PO SCH (20:11)
[2018-10-08] MEDS: DIVALPROEX 250 MG TABLET.DR PO SCH ×2 (07:53→20:55)
[2018-10-08] MEDS: OLANZAPINE 5 MG TABLET PO SCH (07:53)
[2018-10-08] MEDS: ARIPIPRAZOLE 10 MG TABLET PO SCH (07:53)
[2018-10-08] MEDS: BUPROPION SR 150 MG TABLET PO SCH ×2 (07:53→20:55)
[2018-10-08 08:29] VITALS: BP 117/80
[2018-10-08 19:44] VITALS: BP 113/74
[2018-10-08] MEDS: SERTRALINE 100MG TABLET PO SCH (20:55)
[2018-10-08] MEDS: SIMVASTATIN 20 MG TABLET PO SCH (20:55)
[2018-10-09 08:00] VITALS: BP 112/76
[2018-10-09] MEDS: OLANZAPINE 5 MG TABLET PO SCH (08:20)
[2018-10-09] MEDS: BUPROPION SR 150 MG TABLET PO SCH ×2 (08:20→21:38)
[2018-10-09] MEDS: DIVALPROEX 250 MG TABLET.DR PO SCH ×2 (08:20→21:38)
[2018-10-09] MEDS: ARIPIPRAZOLE 10 MG TABLET PO SCH (08:21)
[2018-10-09 19:44] VITALS: BP 95/59
[2018-10-09] MEDS: SIMVASTATIN 20 MG TABLET PO SCH (21:38)
[2018-10-09] MEDS: SERTRALINE 100MG TABLET PO SCH (21:38)
[2018-10-10] MEDS: DIVALPROEX 250 MG TABLET.DR PO SCH ×2 (08:09→21:05)
[2018-10-10] MEDS: ARIPIPRAZOLE 10 MG TABLET PO SCH (08:09)
[2018-10-10] MEDS: OLANZAPINE 5 MG TABLET PO SCH (08:10)
[2018-10-10] MEDS: BUPROPION SR 150 MG TABLET PO SCH ×2 (08:10→21:05)
[2018-10-10 08:20] VITALS: BP 115/78
[2018-10-10 19:51] VITALS: BP 118/74
[2018-10-10] MEDS: SERTRALINE 100MG TABLET PO SCH (21:05)
[2018-10-10] MEDS: SIMVASTATIN 20 MG TABLET PO SCH (21:05)
[2018-10-11 07:18] VITALS: BP 128/81
[2018-10-11] MEDS: OLANZAPINE 5 MG TABLET PO SCH (08:08)
[2018-10-11] MEDS: DIVALPROEX 250 MG TABLET.DR PO SCH ×2 (08:08→20:45)
[2018-10-11] MEDS: BUPROPION SR 150 MG TABLET PO SCH ×2 (08:08→20:45)
[2018-10-11] MEDS: ARIPIPRAZOLE 10 MG TABLET PO SCH (08:09)
[2018-10-11 19:29] VITALS: BP 107/72
[2018-10-11] MEDS: SERTRALINE 100MG TABLET PO SCH (20:45)
[2018-10-11] MEDS: SIMVASTATIN 20 MG TABLET PO SCH (20:46)
[2018-10-12 07:23] VITALS: BP 114/73
[2018-10-12 08:00] VITALS: BP 114/73
[2018-10-12] MEDS: ARIPIPRAZOLE 10 MG TABLET PO SCH (08:08)
[2018-10-12] MEDS: DIVALPROEX 250 MG TABLET.DR PO SCH ×2 (08:08→20:07)
[2018-10-12] MEDS: BUPROPION SR 150 MG TABLET PO SCH ×2 (08:08→20:07)
[2018-10-12] MEDS: OLANZAPINE 5 MG TABLET PO SCH (08:09)
[2018-10-12 19:57] VITALS: BP 110/73
[2018-10-12] MEDS: SERTRALINE 100MG TABLET PO SCH (20:07)
[2018-10-12] MEDS: SIMVASTATIN 20 MG TABLET PO SCH (20:07)
[2018-10-13 08:04] VITALS: BP 124/80
[2018-10-13] MEDS: ARIPIPRAZOLE 10 MG TABLET PO SCH (08:04)
[2018-10-13] MEDS: OLANZAPINE 5 MG TABLET PO SCH (08:05)
[2018-10-13] MEDS: DIVALPROEX 250 MG TABLET.DR PO SCH (08:05)
[2018-10-13] MEDS: BUPROPION SR 150 MG TABLET PO SCH (08:05)
[2018-10-13] MEDS ORDERED: OLANZAPINE 5 MG TABLET PO PRN (14:30)
[2018-10-13] MEDS: SERTRALINE 100MG TABLET PO SCH (14:41)
[2018-10-13 19:45] VITALS: BP 107/74
[2018-10-13] MEDS: SIMVASTATIN 20 MG TABLET PO SCH (20:37)
[2018-10-13] MEDS: DIVALPROEX 500 MG TAB.ER.24H PO SCH (20:37)
[2018-10-13] MEDS ORDERED: OLANZAPINE 5 MG TABLET PO SCH (21:00)
[2018-10-14 07:48] VITALS: BP 123/88
[2018-10-14] MEDS: DIVALPROEX 500 MG TAB.ER.24H PO SCH (08:06)
[2018-10-14] MEDS: SERTRALINE 100MG TABLET PO SCH (08:06)
== END 2018-10-14 11:15 | disposition home or self-care (01) ==
LOC: ED 15:18 → EDIP 16:32 → INTOOBSV 16:32 → 2N 10-04 10:00
PROVIDERS: ADMIT Internal Medicine; ATTEND Internal Medicine
DX: R45.851 Suicidal ideations (principal); F31.9 Bipolar disorder, unspecified; I10 Essential (primary) hypertension; E78.5 Hyperlipidemia, unspecified; F20.9 Schizophrenia, unspecified; F15.229 Other stimulant dependence with intoxication, unspecified; F15.259 Other stimulant dependence with stimulant-induced psychotic disorder, unspecified; F43.10 Post-traumatic stress disorder, unspecified; F29 Unspecified psychosis not due to a substance or known physiological condition; E11.9 Type 2 diabetes mellitus without complications; J44.9 Chronic obstructive pulmonary disease, unspecified; Z81.1 Family history of alcohol abuse and dependence; Z85.72 Personal history of non-Hodgkin lymphomas; Z92.21 Personal history of antineoplastic chemotherapy
CPT/HCPCS: 36415; 71045; 80053; 80307; 80329; 81003; 85025; 93005; 99284; G0378; G0480

== ENCOUNTER 2018-11-23 23:17 | Observation (INO) | payer MEDICAID ==
[~2018-11-23] VITALS: Ht 154.9 cm; Wt 77.3 kg
[~2018-11-23 23:17] MED LIST changes: -GABA600T2 PO; +GABA600T7 PO
[2018-11-24 00:06] LABS: AMPHETAMINE SCREEN, URINE Positive (Negative); BARBITURATE SCREEN, URINE Negative (Negative); BENZODIAZEPINE SCREEN, URINE Negative (Negative); CANNABINOID SCREEN, URINE Negative (Negative); COCAINE SCREEN, URINE Negative (Negative); METHADONE SCREEN, URINE Negative (Negative); OPIATE SCREEN, URINE Negative (Negative)
--- NOTE | 2018-11-24 00:10 | NUR ---
LATE ENTRY: PT. TO ED WITH C/O "I FEEL LIKE PEOPLE ARE THREATING ME EVERYWHERE I GO, AND WHEN I TURN AROUND THERE IS NO ONE THERE." PT. WITH FREQUENT AUDITORY HALLICINATIONS. GRABBING AT OWN HEAD ASKING "WHY WON'T THEY LEAVE ME ALONE". PT. DENIES SI/HI. PT. COOPERATIVE WITH THIS RN BUT DURING CONVERSATIONS WILL SOMETIMES BLURT OUT "WHAT DID YOU JUST CALL ME! I AM NOT A COWARD". OFFERED REASSURANCE TO PT. THAT WE ARE ALL HERE TO HELP HIM AND THAT NO ONE IS BAD MOUTHING HIM. PT. STATES "THANK YOU FOR BEING SO UNDERSTANDING." PT. DOES REPORT HX OF SAME IN THE PAST WITH ADMISSION. PT. STATES HE TAKES 5 PSYCH MEDS BUT CAN ONLY REMEMBER 5 OF THEM; DOESN'T KNOW THE DOSES. SATES HE TOOK HIS MORNING AND EVENING DOES TODAY BUT FORGOT THE LAST COUPLE OF DAYS PRIOR TO THAT. ALSO REPORTS METH USE ABOUT 3 DAYS AGO. DENIES ETOH. URINE SAMPLE PROVIDED AND SENT TO LAB; PT. AMBULATES WITH STEADY GAIT. PT. PLACED INTO GOWN AND PROVIDED WITH HOSPIAL SOCKS AND WARM BLANKETS. ROOM IS SECURED. SITTER IN DOORWAY. ALL BELONGINGS SECURED IN LOCKER IN 2 BAGS; LABELED APPROPRIATELY.
[2018-11-24 00:14] LABS: BASOPHILS # (AUTO) 0.13 x10^3/uL (0-0.1); BASOPHILS % (AUTO) 1 % (0-1); EOSINOPHILS # (AUTO) 0.63 x10^3/uL (0-0.4); EOSINOPHILS % (AUTO) 5 % (1-7); LYMPHOCYTES # (AUTO) 3.54 x10^3/uL (1-3.4); LYMPHOCYTES % (AUTO) 28 % (22-44); MD NO; MEAN CORPUSCULAR HEMOGLOBIN 30.4 pg (27.5-34.5); MEAN CORPUSCULAR VOLUME 89.3 fL (81-97); MONOCYTES # (AUTO) 1.35 x10^3/uL (0.2-0.8); MONOCYTES % (AUTO) 11 % (2-9); NEUTROPHILS # (AUTO) 7.22 x10^3/uL (1.8-6.8); NEUTROPHILS % (AUTO) 56 % (42-75); PLATELET COUNT 367 x10^3/uL (130-400); RED BLOOD COUNT 5.39 x10^6/uL (4.38-5.82); RED CELL DISTRIBUTION WIDTH 13.1 % (9.4-14.8)
[2018-11-24 00:23] LABS: ALANINE AMINOTRANSFERASE 35 U/L (12-78); ALBUMIN 3.5 g/dL (3.4-5.0); ANION GAP 4 mmol/L (5-15); CALCIUM 8.2 mg/dL (8.5-10.1); CHLORIDE 103 mmol/L (98-107); CREATININE 1.04 mg/dL (0.7-1.3)
[2018-11-24 00:26] LABS: ALKALINE PHOSPHATASE 52 U/L (45-117); BILIRUBIN,TOTAL 0.3 mg/dL (0.2-1.0); SALICYLATE LEVEL 2.8 mg/dL (2.8-20.0); TOTAL PROTEIN 7.3 g/dL (6.4-8.2)
[2018-11-24 00:27] LABS: ACETAMINOPHEN < 2 mcg/mL (10-30)
--- NOTE | 2018-11-24 00:29 | NUR ---
rep[ort received from antione bhatt. sitter at [facility] for continous monitoring.
--- NOTE | 2018-11-24 00:45 | NUR ---
TELE PSYCH INITIATED, [id number] BOT PLACED AT BS.
--- NOTE | 2018-11-24 01:18 | NUR ---
pt resting on gurney with eyes open, telepsych md attempting to talk with pt, pt refusing to talk with md stated ' it's a cartoon", room remains secured, sitter at doorway for continous monitoring.
--- NOTE | 2018-11-24 01:23 | NUR ---
pt up in hallway, stated " who called me a cowelvia, where is he", pt back in room resting on gurney, denies needs, sitter at doorway for continous monitoring. erp updated on pt status, erp to place orders.
[2018-11-24] MEDS ORDERED: ZIPRASIDONE 20 MG INJ IM ONE ×3 (01:25→01:30)
--- NOTE | 2018-11-24 01:36 | NUR ---
TELEPSYCH ATTEMPTING TO SPEAK WITH PT. TO TEST CAMERA. PT. KEEPS SHOUTING "GET THIS CARTOON OUT OF HERE, I AM NOT TALKING TO A CARTOON". RN ASSURED PT. THE PEOPLE AN THE SCREEN ARE TRYING TO HELP HIM. PT. STATES "NOW YOU'RE JUST TRYING TO MAKE ME THINK I AM CRAZY JUST LIKE THE REST OF THE TOWN." THEN PT. STATES "CALL ME A COWARD AGAIN, CALL ME A COWARD AGAIN." PT. ENTERED DOORWAY AND ASKED THE SITTER "SAY IT TO MY FACE". DISCUSSED WITH DR. MA; PT. OFFERED PO ZYPREXA VS. IM GEODON. PT. REQUESTED "THE SHOT TO TAKE THE THOUGHTS AWAY". STATES "I ALREADY TOOK MY ZYPREXA AND IT'S NOT HELPING." NEW ORDER RECEIVED AND PT. MEDICATED PER DEC. PT. CALM AND COOPERATIVE WHEN SPEAKING WITH THIS RN. SITTER REMAINS IN LATIF. PT. CONTINUES TO AWAIT TELEPSYCH EVAL.
--- NOTE | 2018-11-24 02:09 | NUR ---
pt resting with eyes closed, nadn, equal chest rise/fall observed, sitter at doorway for continous monitoring.
--- NOTE | 2018-11-24 03:00 | NUR ---
pt resting with eyes closed, nadn, equal chest rise/fall observed, sitter at doorway for continous monitoring.
--- NOTE | 2018-11-24 03:21 | NUR ---
SOC ON TELEPHONE, UPDATED ON PT STATUS, LABS, VS
--- NOTE | 2018-11-24 03:41 | NUR ---
telepsych consult with pt in place at this time
--- NOTE | 2018-11-24 04:10 | NUR ---
pt resting calmly, denies needs at this time, nad, sitter at doorway for continous monitoring.
--- NOTE | 2018-11-24 05:09 | NUR ---
pt resting with eyes closed, repositioned self in bed, equal chest rise/fall observed, sitter at doorway for continous monitoring.
[2018-11-24] MEDS ORDERED: DOCUSATE 100 MG CAPSULE PO PRN (06:00)
[2018-11-24] MEDS ORDERED: ACETAMINOPHEN 325 MG TABLET PO PRN (06:00)
[2018-11-24] MEDS ORDERED: OLANZAPINE 5 MG TABLET PO PRN (06:00)
[2018-11-24 06:13] VITALS: BP 122/82
[2018-11-24 08:00] VITALS: BP 110/73
[2018-11-24] MEDS ORDERED: OLANZAPINE 10 MG TABLET PO SCH (09:00)
[2018-11-24] MEDS ORDERED: SERTRALINE 100MG TABLET PO SCH (09:00)
[2018-11-24] MEDS ORDERED: DIVALPROEX 500 MG TAB.ER.24H PO SCH (09:00)
[2018-11-24] MEDS ORDERED: OLANZAPINE 5 MG TABLET PO SCH (09:00)
[2018-12-01] MEDS ORDERED: NICO-487 TD (17:28)
[2018-12-01] MEDS ORDERED: AMAN100C7 PO (17:28)
[2018-12-01] MEDS ORDERED: RISP1TAB45 PO (17:28)
[2018-12-01] MEDS ORDERED: TRAZ50TA66 PO (17:28)
[2018-12-01] MEDS ORDERED: SERT100T32 PO (17:28)
[2018-12-01] MEDS ORDERED: DIVA500T4 PO (17:28)
== END 2018-11-24 12:28 ==
LOC: ED 23:58 → EDIP 11-24 04:04 → 2N 11-24 06:08
PROVIDERS: ADMIT Internal Medicine; ATTEND Internal Medicine
DX: F23 Brief psychotic disorder (principal); F31.9 Bipolar disorder, unspecified; F43.10 Post-traumatic stress disorder, unspecified; E11.9 Type 2 diabetes mellitus without complications; F15.10 Other stimulant abuse, uncomplicated; H54.61 Unqualified visual loss, right eye, normal vision left eye; I10 Essential (primary) hypertension; J44.9 Chronic obstructive pulmonary disease, unspecified
CPT/HCPCS: 36415; 80053; 80307; 80329; 85025; 96372; 99284; G0378; J3486; G0480